=== PATIENT | female | born 1985 | race Caucasian/White ===

== ENCOUNTER 2016-05-22 01:31 | Emergency (ER) | payer BC, OTHER ==
[~2016-05-22] VITALS: Ht 157.5 cm; Wt 76.5 kg
[~2016-05-22 01:31] MED LIST: IBUP-1277 PO; LEVOIUD
[2016-05-22 01:36] VITALS: TEMP 37.5; Ht 157.5 cm; Wt 76.5 kg
[2016-05-22] MEDS ORDERED: ONDANSETRON INJ 2 MG/ML 2 ML VIAL IV STA (02:07)
[2016-05-22] MEDS ORDERED: MoRPHine SULFATE 4 MG/ML 1 ML CARP\\VIAL IV STA (02:07)
[2016-05-22] MEDS ORDERED: SODIUM CHLORIDE 0.9% 1000ML 2,000 ML IV STA (02:07)
--- NOTE | 2016-05-22 02:11 | EMERGENCY ROOM VISIT NOTE ---
History Report prepared by Satnam: Liz Bui Under the Supervision of: Dr. Gil Bhardwaj M.D. First contact with patient: 01:51 Chief Complaint: NAUSEA Stated Complaint: NAUSEA,DIZZY Nursing Triage Summary: pt c/o nausea, vomiting and diarrhea since 2099. pt states she has not been able to keep anything down and feels lightheaded History of Present Illness The patient is a 31 year old female who presents to the Emergency Room with complaints of persistent nausea, vomiting, and diarrhea starting about 4 hours ago. The patient had some trouble breathing with vomiting. She also complains of dizziness, abdominal pain, and back pain. She took Ondansetron with some relief. The patient denies any fevers, headache, neck pain/stiffness, chest pain , urinary symptoms, or any other complaints. She denies any chance of . Her children had similar symptoms a few days ago. Source of History: patient Onset: about 4 hours ago Position: other (global) Quality: other (nausea, vomiting, and diarrhea) Timing: other (persistent) Modifying Factors (Relieving): other (Ondansetron with some relief) Associated Symptoms: + abdominal pain, + back pain, No chest pain, No fevers , No headache, No neck pain, No urinary symptoms Review of Systems See HPI for pertinent positives & negatives. A total of 10 systems reviewed and were otherwise negative. Past Medical & Surgical Medical Problems: (1) Abdominal Pain, Epigastric (2) Abdominal Pain, Unspecified Site (3) Disorder Of Thyroid Nos (4) Infectious Mononucleosis (5) Ovarian Cyst Nec/Nos (6) Salmonella Enteritis Family History Diabetes mellitus FH: gallbladder disease FH: heart disease Kidney disease Kidney stones Social History Smoking Status: Never Smoker Alcohol Use: none Housing Status: lives alone Occupation Status: employed Current/Historical Medications Scheduled Levothyroxine Sodium (Synthroid), 100 MCG PO DAILY Sertraline Hcl (Zoloft), 100 MG PO DAILY Allergies Coded Allergies: No Known Allergies (Verified , 05/22/16) Physical Exam Vital Signs Date Time Temp Pulse Resp B/P Pulse Ox O2 Delivery O2 Flow Rate FiO2 05/22/16 03:28 92 20 108/66 97 05/22/16 01:36 37.5 115 18 94/73 100 Room Air Physical Exam GENERAL: Patient is in mild distress, dehydrated appearing and in no acute distress. HEENT: No acute trauma, normocephalic atraumatic, mucous membranes dry, no nasal congestion, no scleral icterus. NECK: No stridor, no adenopathy, no meningismus, trachea is midline. LUNGS: No dyspnea. Clear to auscultation and equal bilaterally. No wheeze, no rhonchi. HEART: Tachycardic rate and regular rhythm. No murmurs, rubs, gallops appreciated. ABDOMEN: Soft, nontender, bowel sounds positive, no masses appreciated, no peritonitis. BACK: No midline tenderness, no CVA tenderness EXTREMITIES: Normal motion all extremities, no cyanosis, no edema. NEUROLOGIC: Alert and oriented, no acute motor or sensory deficits, no focal weakness, cranial nerves grossly intact. SKIN: No rash, no jaundice, no diaphoresis. Medical Decision & Procedures Laboratory Results 05/22/16 01:48 Red Blood Count 4.12, Mean Corpuscular Volume 95.9, Mean Corpuscular Hemoglobin 32.8, Mean Corpuscular Hemoglobin Concent 34.2, Mean Platelet Volume 10.3, Neutrophils (%) (Auto) 88.1, Lymphocytes (%) (Auto) 5.1, Monocytes (%) (Auto) 5.5, Eosinophils (%) (Auto) 1.0, Basophils (%) (Auto) 0.1, Neutrophils # (Auto) 11.55, Lymphocytes # (Auto) 0.67, Monocytes # (Auto) 0.72, Eosinophils # (Auto) 0.13, Basophils # (Auto) 0.01 05/22/16 01:48 Test 05/22/16 01:48 05/22/16 02:20 White Blood Count 13.11 K/uL (4.8-10.8) Red Blood Count 4.12 M/uL (4.2-5.4) Hemoglobin 13.5 g/dL (12.0-16.0) Hematocrit 39.5 % (37-47) Mean Corpuscular Volume 95.9 fL (80-100) Mean Corpuscular Hemoglobin 32.8 pg (25-34) Mean Corpuscular Hemoglobin Concent 34.2 g/dl (32-36) Platelet Count 222 K/uL (130-400) Mean Platelet Volume 10.3 fL (7.4-10.4) Neutrophils (%) (Auto) 88.1 % Lymphocytes (%) (Auto) 5.1 % Monocytes (%) (Auto) 5.5 % Eosinophils (%) (Auto) 1.0 % Basophils (%) (Auto) 0.1 % Neutrophils # (Auto) 11.55 K/uL (1.4-6.5) Lymphocytes # (Auto) 0.67 K/uL (1.2-3.4) Monocytes # (Auto) 0.72 K/uL (0.11-0.59) Eosinophils # (Auto) 0.13 K/uL (0-0.5) Basophils # (Auto) 0.01 K/uL (0-0.2) RDW Standard Deviation 44.1 fL (36.4-46.3) RDW Coefficient of Variation 12.7 % (11.5-14.5) Immature Granulocyte % (Auto) 0.2 % Immature Granulocyte # (Auto) 0.03 K/uL (0.00-0.02) Red Blood Cell Morphology Unremarkable Anion Gap 14.0 mmol/L (3-11) Est Creatinine Clear Calc Drug Dose 88.5 ml/min Estimated GFR () 100.8 Estimated GFR (Non- 87.0 BUN/Creatinine Ratio 20.7 (10-20) Calcium Level 8.7 mg/dl (8.5-10.1) Urine Color YELLOW Urine Appearance CLEAR (CLEAR) Urine pH 8.5 (4.5-7.5) Urine Specific [place] 1.030 (1.000-1.030) Urine Protein NEG (NEG) Urine Glucose (UA) NEG (NEG) Urine Ketones TRACE (NEG) Urine Occult Blood TRACE (NEG) Urine Nitrite NEG (NEG) Urine Bilirubin NEG (NEG) Urine Urobilinogen NEG (NEG) Urine Leukocyte Esterase SMALL (NEG) Urine WBC (Auto) 10-30 /hpf (0-5) Urine RBC (Auto) 5-10 /hpf (0-4) Urine Hyaline Casts (Auto) 10-30 /lpf (0-5) Urine Epithelial Cells (Auto) 20-30 /lpf (0-5) Urine Bacteria (Auto) NEG (NEG) Laboratory results as reviewed by me. Medications Administered Medications (Trade) Dose Ordered Sig/Giacomo Route Start Time Stop Time Status Last Admin Dose Admin Sodium Chloride (Nss 1000ml) 2,000 ml @ 999 mls/hr Q2H1M STAT IV 05/22/16 02:07 05/22/16 04:07 DC 05/22/16 02:17 999 MLS/HR Ondansetron HCl (Zofran Inj) 4 mg NOW STAT IV 05/22/16 02:07 05/22/16 02:08 DC 05/22/16 02:16 4 MG Morphine Sulfate (MoRPHine SULFATE INJ) 4 mg NOW STAT IV 05/22/16 02:07 05/22/16 02:08 DC 05/22/16 02:17 4 MG Promethazine HCl (Phenergan 25MG Home Pack) 1 homepack UD ONCE PO 05/22/16 03:30 05/22/16 03:31 DC 05/22/16 03:25 1 HOMEPACK ED Course 0151: The patient was evaluated in room B02. A complete history and physical exam was performed. 0207: Morphine Sulfate 4 mg IV, Zofran Inj 4 mg IV, Sodium Chloride 2000 ml @ 999 mls/hr IV 0319: Reevaluated the patient. Discussed results and discharge instructions: She verbalized understanding and agreement. The patient is ready for discharge. 0330: Promethazine HCl 1 homepack PO Medical Decision Differential: Gastroenteritis, Food Borne, Esophageal Perforation, , Electrolyte Abnormality, Dehydration, Intraabdominal Infection, UTI/ Pyelonephritis, Bowel Obstruction, Biliary Pathology, amongst other pathology entertained. Pleasant 31 yr old female arrives with acute nausea, vomiting, diarrhea. Multiple family member with same and known Norovirus throughout the community. Given fluids/zofran for dehydration nausea with much improvement. Small morphine for abdominal cramping and back spasms. Abdomen exam however is quite benign. Just mild WBC elevation consistent with dehydration. No urinary symptoms and thus I feel UA is contaminant. Discussed RTED if worsening or other concerns. Stable and feeling quite well at discharge. Impression Primary Impression: Dehydration Additional Impression: Vomiting and diarrhea Scribe Attestation The scribe's documentation has been prepared under my direction and personally reviewed by me in its entirety. I confirm that the note above accurately reflects all work, treatment, procedures, and medical decision making performed by me. Departure Information Dispostion Home / Self-Care Referrals No Doctor, Assigned (PCP) Forms HOME CARE DOCUMENTATION FORM, IMPORTANT VISIT INFORMATION Patient Instructions ED Gastroenteritis Viral, My [facility] Problem Qualifiers
[2016-05-22 02:19] LABS: HEMATOCRIT 39.5 % (37-47); MEAN CELL VOLUME 95.9 fL (80-100); MEAN CORPUSCULAR HEMOGLOBIN 32.8 pg (25-34); MEAN CORPUSCULAR HGB CONC 34.2 g/dl (32-36); MEAN PLATELET VOLUME 10.3 fL (7.4-10.4); PLATELET COUNT 222 K/uL (130-400); RED BLOOD COUNT 4.12 M/uL (4.2-5.4); WHITE BLOOD COUNT 13.11 K/uL (4.8-10.8)
[2016-05-22 02:33] LABS: URINE APPEARANCE CLEAR (CLEAR); URINE BILIRUBIN NEG (NEG); URINE COLOR YELLOW; URINE EPITHELIAL CELL AUTO 20-30 /lpf (0-5); URINE NITRITE NEG (NEG); URINE PH 8.5 (4.5-7.5); UROBILINOGEN NEG (NEG); ZZUR CULT IF INDIC CLEAN CATCH YES
[2016-05-22 02:35] LABS: MANUAL MICROSCOPIC REQUIRED? NO; REVIEW REQ? NO
[2016-05-22 02:37] LABS: BASO % 0.1 %; BASO ABS # 0.01 K/uL (0-0.2); BUN/CREATININE RATIO 20.7 (10-20); CALCIUM 8.7 mg/dl (8.5-10.1); COMPLETE YES; CREATININE 0.89 mg/dl (0.60-1.20); IG% 0.2 %; LYMPH % 5.1 %; LYMPH ABS # 0.67 K/uL (1.2-3.4); MONO % 5.5 %; NEUT % 88.1 %; POTASSIUM 3.6 mmol/L (3.5-5.1)
[2016-05-22 03:28] VITALS: BP 108/66; PULSE 92; O2SAT 97
[2016-05-22] MEDS ORDERED: PHENERGAN 25MG HOMEPACK PO ONE (03:30)
[2016-08-27] MEDS ORDERED: OXYC-57 PO (09:44)
[2016-08-27] MEDS ORDERED: SERT1TAB68 PO (09:45)
[2016-08-27] MEDS ORDERED: LEVO100T PO (09:45)
== END 2016-05-22 03:28 | disposition home or self-care (01) ==
LOC: C.EDB 01:31
DX: E86.0 Dehydration (principal); R11.10 Vomiting, unspecified; R19.7 Diarrhea, unspecified; E07.9 Disorder of thyroid, unspecified; N83.209 Unspecified ovarian cyst, unspecified side; Z86.19 Personal history of other infectious and parasitic diseases; Z79.899 Other long term (current) drug therapy; Z83.3 Family history of diabetes mellitus; Z83.79 Family history of other diseases of the digestive system; Z82.49 Family history of ischemic heart disease and other diseases of the circulatory system; Z84.1 Family history of disorders of kidney and ureter

== ENCOUNTER → 2016-06-13 | Outpatient (CLI) | payer BC ==
[~2016-06-13] MED LIST changes: -IBUP-1277 PO; +LEVO100T PO; -LEVOIUD; +ONDA4TAB10 SL; +OXYC-57 PO; +SERT1TAB68 PO
[2016-06-13 14:03] LABS: THYROID STIMULATING HORMONE 0.862 uIu/ml (0.300-4.500)
== END | disposition home or self-care (01) ==
LOC: C.LABBC 12:13
PROVIDERS: ATTEND Internal Medicine Endocrinology, Diabetes & Metabolism
DX: E03.9 Hypothyroidism, unspecified (principal); E06.3 Autoimmune thyroiditis; E05.00 Thyrotoxicosis with diffuse goiter without thyrotoxic crisis or storm

== ENCOUNTER → 2016-07-23 | Outpatient (CLI) | payer BC ==
[~2016-07-23] MED LIST changes: +ZNTT/150 PO
== END | disposition home or self-care (01) ==
LOC: C.LABSPEC 10:49
PROVIDERS: ATTEND Internal Medicine
DX: N39.0 Urinary tract infection, site not specified (principal)

== ENCOUNTER 2016-08-27 18:17 | Emergency (ER) | payer BC ==
[~2016-08-27] VITALS: Ht 157.5 cm; Wt 77.5 kg
[~2016-08-27 18:17] MED LIST changes: -ATROPINE SULFATE 0.1 MG/ML 5ML SYR IV PRN; -BUPIVACAINE 0.5 % 5 MG/1 ML MPF 30ML VIAL ONE; -DEXAMETHASONE SOD INJ 4 MG/ML VIAL ONE; -FENTANYL CITRATE INJ 50 MCG/1 ML 2 ML VIAL ONE; -GLYCOPYRROLATE INJ 0.2 MG/ML VIAL ONE; -IBUPROFEN 200 MG TAB ONE; -IBUPROFEN 600 MG TAB PO PRN; -KETOROLAC TROMETHAMINE 30 MG/ML VIAL IV. PRN; -KETOROLAC TROMETHAMINE 30 MG/ML VIAL ONE; -LABETALOL HCL IV 5 MG/ML 20ML IV PRN; -LACTATED RINGER'S 1000ML 1,000 ML IV SCH; -LIDOCAINE HCL 2% 2 ML VIAL (20MG/ML) ONE; -MIDAZOLAM HCL 1 MG/ML 2ML VIAL ONE; -NEOSTIGMINE METHYLSULFATE 5 MG/5 ML SYR ONE; -ONDA4TAB10 SL; -ONDANSETRON INJ 2 MG/ML 2 ML VIAL IV PRN; -ONDANSETRON INJ 2 MG/ML 2 ML VIAL ONE; -OXYCODONE/ACETAMINOPHEN 5-325 TAB PO PRN; -PROMETHAZINE HCL INJ 12.5 MG in SODIUM CHLORIDE 0.9% 50ML 50 ML IV PRN; -PROPOFOL IV EMULSION 10 MG/ML 20 ML VIAL IV ONE; -SODIUM CHLORIDE 0.9% 1000ML 1,000 ML IV SCH; -ZNTT/150 PO
[2016-08-27 18:20] VITALS: TEMP 36.5; Ht 157.5 cm; Wt 77.5 kg
[2016-08-27] MEDS ORDERED: KETOROLAC TROMETHAMINE 30 MG/ML VIAL IV STA (18:34)
[2016-08-27] MEDS ORDERED: SODIUM CHLORIDE 0.9% 1000ML 2,000 ML IV STA (18:34)
[2016-08-27] MEDS ORDERED: MoRPHine SULFATE 10 MG/ML CARP/VIAL IV STA (18:34)
[2016-08-27] MEDS ORDERED: ONDANSETRON 8 MG/54 ML D5W IV STA (18:34)
[2016-08-27 19:20] LABS: COMPLETE YES; HEMATOCRIT 37.8 % (37-47); IG% 0.3 %; LYMPH ABS # 0.76 K/uL (1.2-3.4); MEAN CELL VOLUME 95.2 fL (80-100); MEAN CORPUSCULAR HEMOGLOBIN 32.5 pg (25-34); MEAN CORPUSCULAR HGB CONC 34.1 g/dl (32-36); MEAN PLATELET VOLUME 9.8 fL (7.4-10.4); MONO % 1.7 %; PLATELET COUNT 243 K/uL (130-400); RED BLOOD COUNT 3.97 M/uL (4.2-5.4); WHITE BLOOD COUNT 10.87 K/uL (4.8-10.8)
[2016-08-27 19:24] LABS: MANUAL MICROSCOPIC REQUIRED? NO; REVIEW REQ? NO; URINE APPEARANCE CLEAR (CLEAR); URINE BILIRUBIN NEG (NEG); URINE COLOR YELLOW; URINE EPITHELIAL CELL AUTO >30 /lpf (0-5); URINE NITRITE NEG (NEG); URINE PH >= 9.0 (4.5-7.5); URINE SPECIFIC GRAVITY 1.026 (1.000-1.030); UROBILINOGEN NEG (NEG)
[2016-08-27 19:26] LABS: SULFASALICYLIC ACID NEG (NEG)
[2016-08-27 19:37] LABS: BUN/CREATININE RATIO 9.7 (10-20); CALCIUM 9.1 mg/dl (8.5-10.1); CREATININE 0.81 mg/dl (0.60-1.20); POTASSIUM 3.4 mmol/L (3.5-5.1)
[2016-08-27] MEDS ORDERED: MoRPHine SULFATE 4 MG/ML 1 ML CARP\\VIAL IV STA (20:04)
[2016-08-27] MEDS ORDERED: ONDA4TAB10 SL (20:43)
--- NOTE | 2016-08-27 20:43 | EMERGENCY ROOM VISIT NOTE ---
History First contact with patient: 18:25 Chief Complaint: VOMITING Stated Complaint: TUBAL LIGATION TODAY,THROWING UP,PAIN Nursing Triage Summary: Pt states tubal ligation today by Dr. Senior. N/V since 1300. Pt states taking Percocet, not given anything for zofran. States pain is getting worse. History of Present Illness Patient is a 31-year-old white female with past medical history significant for hypothyroidism who presents to the emergency department accompanied by her sister for evaluation of pelvic pain, nausea and vomiting after having a laparoscopic tubal ligation performed today. Patient had surgery earlier today. She reports that she was discharged from the surgery center around 11: 30. Her pain was controlled at that time. She states she went home and slept for a few hours, then began to notice some increased pain so she took it one Percocet tablet on an empty stomach around 1330. She states she vomited roughly 10 minutes after taking the Percocet. Throughout the afternoon, she tried sipping on spray, Gatorade, eating crackers and broth, but had continued vomiting, she reports a total of 5 or 6 episodes. Her last episode of vomiting was in the waiting room. She did try taking a another Percocet tablet about one hour prior to coming to the emergency department, and again vomited roughly 10 minutes after ingesting the tablet. She used a heating pad on her abdomen, but did not take any additional medications for discomfort which she presently rates a 10/10. She did not attempt to call her surgeon. She has never had general anesthesia before, and does not believe that she has ever taken Percocet. She notes lower pelvic/suprapubic pain that does not radiate. She has been able to urinate and notes some urinary burning the last couple of times that she voided. She has not had a bowel movement in a couple of days. She has slight vaginal spotting. Review of Systems Review of systems as per HPI. All other systems reviewed were negative. 10 systems reviewed. Past Medical/Surgical History Medical Problems: (1) Abdominal Pain, Epigastric (2) Abdominal Pain, Unspecified Site (3) Dehydration (4) Diabetes mellitus, new onset (5) Disorder Of Thyroid Nos (6) Hypothyroidism Nos (7) Infectious Mononucleosis (8) Intrauterine (9) Ovarian Cyst Nec/Nos (10) Salmonella Enteritis (11) Sinusitis (12) Syncope, vasovagal (13) Urinary tract infection (14) Vomiting and diarrhea Surgical Problems: (1) H/O wisdom tooth extraction (2) History of tubal ligation Electronic medical records are reviewed and summarized as above/below. See Problem List. Family History Diabetes mellitus FH: gallbladder disease FH: heart disease Kidney disease Kidney stones Social History Smoking Status: Never Smoker Alcohol Use: none Housing Status: lives with family Occupation Status: employed Current/Historical Medications Scheduled Levothyroxine Sodium (Synthroid), 100 MCG PO QAM Sertraline Hcl (Zoloft), 100 MG PO HS Scheduled PRN Ondasetron Odt (Zofran Odt), 4 MG SL Q4 PRN for Nausea or Vomiting Oxycodone/Acetaminophen 5MG/325MG (Percocet 5MG/325MG), 1 TABLET PO Q4H PRN for Pain Allergies Coded Allergies: No Known Allergies (Verified , 08/27/16) Physical Exam Vital Signs Date Time Temp Pulse Resp B/P Pulse Ox O2 Delivery O2 Flow Rate FiO2 08/27/16 20:55 84 18 107/60 94 08/27/16 20:03 84 18 100/55 94 Room Air 08/27/16 18:20 36.5 76 20 114/72 97 Room Air Physical Exam CONSTITUTIONAL: Patient is an uncomfortable appearing 31-year-old white female who is awake and alert and in mild distress due to her stated complaint. EYES: Pupils equal, round, reactive to light and accommodation. EOMs intact without nystagmus. Sclera are anicteric. ENT: Tympanic membranes intact, with normal landmarks. External canals are clear. Oral and nasopharynx are clear. Mucous membranes are moist, no lesions , tongue and gums appear normal. NECK: No bruits auscultated. Supple without lymphadenopathy. No thyromegaly. No meningeal signs. Full active range of motion without discomfort. CARDIOVASCULAR: Regular rate and rhythm, with normal S1 and S2, no murmur or gallop or rub is heard. No carotid bruits auscultated. No JVD. Peripheral pulses easily palpable. RESPIRATORY: Breath sounds equal and clear to auscultation without wheezes, rales, or rhonchi heard. Full and equal chest expansion without accessory muscle use or retractions. ABDOMEN: Bowel sounds are present. 2 surgical incisions are noted intact with Steri-Strips and band aids. Surgical prep still stains the abdomen. Bowel sounds are hypoactive, the abdomen is soft, slightly distended and tender to percussion and light palpation only in the suprapubic region without guarding or rebound. INTEGUMENTARY: No lesions or rash, normal skin turgor. LYMPH: No lymphadenopathy. Medical Decision & Procedures Laboratory Results 08/27/16 19:03 Red Blood Count 3.97, Mean Corpuscular Volume 95.2, Mean Corpuscular Hemoglobin 32.5, Mean Corpuscular Hemoglobin Concent 34.1, Mean Platelet Volume 9.8, Neutrophils (%) (Auto) 91.0, Lymphocytes (%) (Auto) 7.0, Monocytes (%) (Auto) 1.7, Eosinophils (%) (Auto) 0.0, Basophils (%) (Auto) 0.0, Neutrophils # (Auto) 9.90, Lymphocytes # (Auto) 0.76, Monocytes # (Auto) 0.18, Eosinophils # (Auto) 0.00, Basophils # (Auto) 0.00 08/27/16 19:03 Test 08/27/16 19:03 08/27/16 19:07 White Blood Count 10.87 K/uL (4.8-10.8) Red Blood Count 3.97 M/uL (4.2-5.4) Hemoglobin 12.9 g/dL (12.0-16.0) Hematocrit 37.8 % (37-47) Mean Corpuscular Volume 95.2 fL (80-100) Mean Corpuscular Hemoglobin 32.5 pg (25-34) Mean Corpuscular Hemoglobin Concent 34.1 g/dl (32-36) Platelet Count 243 K/uL (130-400) Mean Platelet Volume 9.8 fL (7.4-10.4) Neutrophils (%) (Auto) 91.0 % Lymphocytes (%) (Auto) 7.0 % Monocytes (%) (Auto) 1.7 % Eosinophils (%) (Auto) 0.0 % Basophils (%) (Auto) 0.0 % Neutrophils # (Auto) 9.90 K/uL (1.4-6.5) Lymphocytes # (Auto) 0.76 K/uL (1.2-3.4) Monocytes # (Auto) 0.18 K/uL (0.11-0.59) Eosinophils # (Auto) 0.00 K/uL (0-0.5) Basophils # (Auto) 0.00 K/uL (0-0.2) RDW Standard Deviation 44.2 fL (36.4-46.3) RDW Coefficient of Variation 12.8 % (11.5-14.5) Immature Granulocyte % (Auto) 0.3 % Immature Granulocyte # (Auto) 0.03 K/uL (0.00-0.02) Anion Gap 7.0 mmol/L (3-11) Est Creatinine Clear Calc Drug Dose 97.9 ml/min Estimated GFR () 113.0 Estimated GFR (Non- 97.5 BUN/Creatinine Ratio 9.7 (10-20) Calcium Level 9.1 mg/dl (8.5-10.1) Total Bilirubin 0.8 mg/dl (0.2-1) Aspartate Amino Transf (AST/SGOT) 10 U/L (15-37) Alanine Aminotransferase (ALT/SGPT) 20 U/L (12-78) Alkaline Phosphatase 69 U/L (45-117) Total Protein 7.9 gm/dl (6.4-8.2) Albumin 4.0 gm/dl (3.4-5.0) Globulin 3.9 gm/dl (2.5-4.0) Albumin/Globulin Ratio 1.0 (0.9-2) Lipase 72 U/L (73-393) Urine Color YELLOW Urine Appearance CLEAR (CLEAR) Urine pH >= 9.0 (4.5-7.5) Urine Specific [place] 1.026 (1.000-1.030) Urine Protein NEG (NEG) Urine Glucose (UA) NEG (NEG) Urine Ketones 2+ (NEG) Urine Occult Blood 1+ (NEG) Urine Nitrite NEG (NEG) Urine Bilirubin NEG (NEG) Urine Urobilinogen NEG (NEG) Urine Leukocyte Esterase TRACE (NEG) Urine WBC (Auto) 1-5 /hpf (0-5) Urine RBC (Auto) >30 /hpf (0-4) Urine Hyaline Casts (Auto) 5-10 /lpf (0-5) Urine Epithelial Cells (Auto) >30 /lpf (0-5) Urine Bacteria (Auto) NEG (NEG) Medications Administered Medications (Trade) Dose Ordered Sig/Giacomo Route Start Time Stop Time Status Last Admin Dose Admin Sodium Chloride (Nss 1000ml) 2,000 ml @ 999 mls/hr Q2H1M STAT IV 08/27/16 18:34 08/27/16 20:34 DC 08/27/16 19:10 999 MLS/HR Ketorolac Tromethamine (Toradol Inj) 30 mg NOW STAT IV 08/27/16 18:34 08/27/16 18:36 DC 08/27/16 19:23 30 MG Ondansetron HCl (Zofran 8mg Iv) 8 mg NOW STAT IV 08/27/16 18:34 08/27/16 18:37 DC 08/27/16 19:10 8 MG Morphine Sulfate (MoRPHine SULFATE INJ) 6 mg NOW STAT IV 08/27/16 18:34 08/27/16 18:37 DC 08/27/16 19:25 6 MG Morphine Sulfate (MoRPHine SULFATE INJ) 4 mg NOW STAT IV 08/27/16 20:04 08/27/16 20:05 DC 08/27/16 20:10 4 MG Ondansetron HCl (ZOFRAN ODT 4MG Home Pack) 1 homepack UD ONCE PO 08/27/16 20:45 08/27/16 20:46 DC 08/27/16 20:49 1 HOMEPACK Acetaminophen/ Hydrocodone Bitart ([place] 5/325mg Home Pack) 1 homepack UD ONCE PO 08/27/16 20:45 08/27/16 20:46 DC 08/27/16 20:48 1 HOMEPACK ED Course The patient was seen and assessed as above. Her old records were reviewed, specifically her operative record from earlier today. IV access was obtained and patient was hydrated with 2 L of normal saline solution. She is medicated with Toradol 30 mg, morphine 6 mg and Zofran 4 mg IV. CBC with differential, CMP, lipase and urinalysis were performed. Laboratory studies revealed a white count of 10,800, H&H 12.9 and 37.8. Electrolytes, liver functions and renal functions are within normal limits. Lipase is not elevated. Urinalysis is indicative of contamination with blood, leuk esterase and greater than 30 RBCs and epithelial cells. No bacteria is noted. The patient was reassessed and reported improvement, but persistent pain. She was given additional morphine 4 mg IV with good relief of her discomfort. She was given oral fluids in the emergency department which she tolerated, and reported feeling much improved. Patient's symptoms could be related to the general anesthesia, could also be related to the Percocet use, possibly a combination of both. The patient's exam has expected tenderness, but no guarding or rigidity and it was not felt that any imaging was indicated at this time. Conservative care measures were discussed. Patient was provided a prescription for Zofran. She can try this with the Percocet, but if this continues to make her nauseous, she was given a [place] home pack which she can try instead of the Percocet. She was encouraged to use ibuprofen as well and to follow all of her other postoperative instructions according to her surgeon. I do not suspect postoperative hemorrhage, bowel perforation or obstruction or infectious process. The patient was educated on the worrisome signs or symptoms for which she should return to the emergency department, and was advised to recheck to her surgeon by phone tomorrow to notify them of her ED visit. Patent expressed understanding of this and was agreeable. She was discharged home in good condition in the care of a friend. She rated her discomfort a 4/10 at discharge. Vital signs were stable. Medical Decision See ED course Impression Primary Impression: Nausea and vomiting Additional Impression: Postoperative pain Departure Information Prescriptions Ondasetron Odt (ZOFRAN ODT) 4 Mg Tab 4 MG SL Q4 Y for Nausea or Vomiting, #20 TAB Prov: Kandi Jewell PA 08/27/16 Referrals RV. Felix MD (PCP) Patient Instructions My [facility] Additional Instructions DO NOT drive, drink alcohol, operate machinery, or perform dangerous activities today. You were given medications in the ER that can affect your ability to safely function or operate a vehicle. Hydrocodone/Acetaminophen ([place]) 5/325 mg: Take 1-2 pills every four hours for breakthrough pain. Avoid alcohol, operating machinery or dangerous equipment, working on ladders or roofs, DRIVING, or situations where being under the influence may be dangerous. It is recommended to use an [id number] stool softener such as Colace, 100mg twice daily while taking this medication to avoid constipation. Zofran(odansetron) tablets 4mg: Take one and allow it to dissolve in your mouth every four to six hours as needed for nausea or vomiting. Ibuprofen(Motrin, Advil) may be used for fever or pain. Use 600mg every six hours as needed. Take with food. Avoid using more than 2400mg in a 24 hour period. Do not use 2400mg per day for more than three consecutive days without physician direction. Prolonged inappropriate use can lead to stomach upset or ulcers. (AND/OR) Acetaminophen(Tylenol) may be used for fever or pain. Use 1000mg every six hours as needed. Avoid using more than 4000mg in a 24 hour period. Rest and drink plenty of fluids as tolerated. Slow sips of water or sports drinks are recommended instead of large amounts all at once. Continue current medications. Once your stomach is settled start with a clear liquid diet (jello, soup broth, etc.) and then advance as tolerated. You should avoid full, heavy meals for about 24 hrs from the time your symptoms resolved. Follow all other postoperative instructions according to Dr. Senior. Return to the ER for persistent vomiting, fevers, abdominal pain, chest pains, difficulty breathing, black or bloody stools, worsening of your condition, or as needed. Follow up with gynecology as scheduled. Problem Qualifiers
[2016-08-27] MEDS ORDERED: ONDANSETRON HOME PACK 4MG OD TAB PO ONE (20:45)
[2016-08-27] MEDS ORDERED: NORCO 5/325MG HOME PACK PO ONE (20:45)
[2016-08-27 20:55] VITALS: BP 107/60; PULSE 84; O2SAT 94
== END 2016-08-27 20:55 | disposition home or self-care (01) ==
LOC: C.EDB 18:18 → C.EDC 20:55
DX: R11.2 Nausea with vomiting, unspecified (principal); G89.18 Other acute postprocedural pain; E03.9 Hypothyroidism, unspecified; E11.9 Type 2 diabetes mellitus without complications; Z98.890 Other specified postprocedural states; Z79.899 Other long term (current) drug therapy; Z86.19 Personal history of other infectious and parasitic diseases; Z87.42 Personal history of other diseases of the female genital tract; Z82.49 Family history of ischemic heart disease and other diseases of the circulatory system; Z83.3 Family history of diabetes mellitus; Z83.79 Family history of other diseases of the digestive system; Z84.1 Family history of disorders of kidney and ureter

== ENCOUNTER → 2016-08-27 | Day surgery (SDC) | payer BC ==
[2016-08-01 12:04] VITALS: Ht 157.5 cm; Wt 77.3 kg
--- NOTE | 2016-08-24 07:46 | HISTORY & PHYSICAL EXAMINATION ---
DATE OF ADMISSION: 08/27/2016 The patient is for surgery on 08/27/2016. CHIEF COMPLAINT: Desires sterilization. HISTORY OF PRESENT ILLNESS: The patient is a 31-year-old white female, 2, para 2, who desires permanent sterilization. The patient recently had a Mirena IUD removed as it had . She has been using condoms for contraception since then. The IUD was removed on 07/30/2016. The patient's last Pap smear was 01/13/2016 and this was negative. PAST MEDICAL HISTORY: ALLERGIES: No known drug allergies. MEDICATIONS: The patient takes levothyroxine 100 mcg daily. She also takes sertraline 50 mg 1 and 1/2 tablets daily. ILLNESSES: The patient does suffer with the seasonal allergies. She has also been diagnosed with Graves' disease in the past and is now hypothyroid. She also reports depression. SURGERIES: The patient has had a tooth extraction in the past. Otherwise, no surgeries. FAMILY HISTORY: Her paternal grandmother had elevated cholesterol, hypertension and thyroid disorder. Her paternal grandfather had diabetes and cardiovascular disorder. SOCIAL HISTORY: The patient is . She denies smoking cigarettes. She does drink alcohol socially. PHYSICAL EXAMINATION: VITAL SIGNS: Height 5 feet 2-1/2 inches, weight 171 pounds, blood pressure 124/66. HEENT: Grossly within normal limits. NECK: Supple without masses. CHEST: Her lungs are clear without wheezing. HEART: Regular rate and rhythm. No murmurs, gallops or rubs. ABDOMEN: Soft and nontender. There are no masses and no hepatosplenomegaly. PELVIC: External genitalia normal. Vagina pink and stimulated. Cervix pink and closed with no lesions visible. Uterus within normal limit size, nontender. Adnexa nontender with no masses palpable. EXTREMITIES: No cyanosis, clubbing or edema. IMPRESSION: A 31-year-old 2, para 2, who desires permanent sterilization. PLAN: The patient is for laparoscopic bilateral tubal sterilization by bipolar cauterization, ring placement or excision. The patient is aware of the risks of bleeding, infection, injury to internal organs which could require additional surgery or treatment, risk of regret, ectopic , failure and rehospitalization. The patient is aware of other methods of contraception, but she desires permanent sterilization. [facility]
[~2016-08-27] VITALS: Ht 157.5 cm; Wt 77.3 kg
[~2016-08-27] MED LIST changes: +ATROPINE SULFATE 0.1 MG/ML 5ML SYR IV PRN; +BUPIVACAINE 0.5 % 5 MG/1 ML MPF 30ML VIAL ONE; +DEXAMETHASONE SOD INJ 4 MG/ML VIAL ONE; +FENTANYL CITRATE INJ 50 MCG/1 ML 2 ML VIAL ONE; +GLYCOPYRROLATE INJ 0.2 MG/ML VIAL ONE; +IBUPROFEN 200 MG TAB ONE; +IBUPROFEN 600 MG TAB PO PRN; +KETOROLAC TROMETHAMINE 30 MG/ML VIAL IV. PRN; +KETOROLAC TROMETHAMINE 30 MG/ML VIAL ONE; +LABETALOL HCL IV 5 MG/ML 20ML IV PRN; +LACTATED RINGER'S 1000ML 1,000 ML IV SCH; +LIDOCAINE HCL 2% 2 ML VIAL (20MG/ML) ONE; +MIDAZOLAM HCL 1 MG/ML 2ML VIAL ONE; +NEOSTIGMINE METHYLSULFATE 5 MG/5 ML SYR ONE; +ONDANSETRON INJ 2 MG/ML 2 ML VIAL IV PRN; +ONDANSETRON INJ 2 MG/ML 2 ML VIAL ONE; +OXYCODONE/ACETAMINOPHEN 5-325 TAB PO PRN; +PROMETHAZINE HCL INJ 12.5 MG in SODIUM CHLORIDE 0.9% 50ML 50 ML IV PRN; +PROPOFOL IV EMULSION 10 MG/ML 20 ML VIAL IV ONE; +SODIUM CHLORIDE 0.9% 1000ML 1,000 ML IV SCH
--- NOTE | 2016-08-27 08:41 | History & Physical Bridge - SC ---
H&P Re-Evaluation Bridge Note: I have examined the patient, reviewed the History & Physical and in the interval since the performance of the History & Physical I have noted the following changes of clinical significance: No changes noted
--- NOTE | 2016-08-27 09:28 | [facility] Post Operative Brief Note ---
Immediate Operative Summary Operative Date August 27, 2016. Pre-Operative Diagnosis Desires permanent sterilization Post-Operative Diagnosis Same Procedure(s) Performed Laparoscopic Tubal Sterilization With Fallope Rings Surgeon Dr. Senior Tailer Off Surgeon(s) None Estimated Blood Loss 20 cc Findings See dictated note. Specimens None Complication(s) None Disposition Recovery Room / PACU
--- NOTE | 2016-08-27 09:40 | Discharge Instructions-SurgCtr ---
Discharge Instructions Date of Service August 27, 2016. Visit Reason for Visit: Desires permanent sterilization Discharge Discharge Diagnosis / Problem: S/P laparoscopic tubal banding Discharge Goals Goal(s): Therapeutic intervention Activity Recommendations Activity Limitations: per Instructions/Follow-up section Anesthesia . Post Anesthesia Instructions: If you have had General Anesthesia or IV Sedation: * Do not drive today. * Resume driving when surgeon permits. * Do not make important decisions or sign legal documents today. * Call surgeon for: 1. Temperature elevations greater than 101 degrees F. 2. Uncontrollable pain. 3. Excessive bleeding. 4. Persistent nausea and vomiting. 5. Medication intolerance (nausea, vomiting or rash). * For nausea and vomiting use only clear liquids such as: tea, soda, bouillon until nausea subsides, then gradually increase diet as tolerated. * If you have any concerns or questions, call your surgeon's office. If physician is unavailable and it is an emergency, call 911 or go to the nearest emergency room. . Instructions / Follow-Up Instructions / Follow-Up ACTIVITY RECOMMENDATIONS: * Rest the first 2-3 days. You should be back to your normal activity levels by day 3. * No heavy lifting for 2 weeks. * No intercourse, tampons or douching for 2 weeks. * You may shower the next day. * Do not drive anytime that you are taking narcotic pain medicines. RETURN TO SCHOOL/WORK: * May return to school or work after 3-5 days. DIET: Nausea may occur in the immediate post-operative period. If so, take clear liquids such as tea, bouillon, apple juice until all nausea has subsided, then resume usual diet. MEDICATIONS: Resume previous medications unless instructed otherwise by your surgeon. Take percocet one tablet every 3-4 hours as needed for severe pain. Ibuprofen 200mg 2-3 tablets every 4-6 hours as needed -- OR -- Aleve 2 tablets every 8-12 hours as needed for post-operative discomfort Medications are over the counter. Tylenol may be used if above medications are contraindicated or not preferred. Medication should be taken with food or milk. Do not take on an empty stomach. SPECIAL CARE INSTRUCTIONS: * Check temperature twice daily for one week. report any elevation over 101 degrees. * You may experience some vagina spotting and/or bleeding. This is normal for 1 -2 weeks and should not be heavier than a normal period. If it is unusual in amount, call your physician. * Post-operative discomfort may consist of a sore throat, a "bloated" feeling and pain in the shoulders. these are normal symptoms, which usually only last for 2-3 days. * Remove band-aids tomorrow and shower. Leave steristrips in place. There is no need to replace band-aids unless there is drainage or discomfort. FOLLOW UP VISIT: Call your doctor's office for a post-operative 2-4 week visit if not already scheduled. [phone] Diet Recommendations Home Diet: resume previous diet Procedures Procedures Performed: Laparoscopic Tubal Sterilization With Fallope Rings Pending Studies Studies pending at discharge: no Medical Emergencies . Who to Call and When: Medical Emergencies: If at any time you feel your situation is an emergency, please call 911 immediately. . Non-Emergent Contact Non-Emergency issues call your: Field Staff Manager Call Non-Emergent contact if: temperature is above 100.5, your pain is not controlled, wound has increased drainage, wound has increased redness, wound has increased pain . . "Provider Documentation" section prepared by Mony Senior. . [place] Drug Monitoring Program Search Results: patient reviewed within database, no issues identified
[2016-08-27] MEDS: FENTANYL CITRATE INJ 50 MCG/1 ML 2 ML VIAL IV PRN ×3 (09:55→10:15)
--- NOTE | 2016-08-27 10:37 | OPERATIVE REPORT ---
DATE OF OPERATION: 08/27/2016 PREOPERATIVE DIAGNOSIS: Desires permanent sterilization. POSTOPERATIVE DIAGNOSIS: Same. PROCEDURE: Laparoscopic tubal sterilization with Falope rings. SURGEON: Dr. Mony Senior. ANESTHESIA: General. NEURORADIOLOGIST: Dr. Bland. DESCRIPTION OF PROCEDURE: The patient was taken to the operating room where general anesthesia was administered. After an adequate level was obtained, she was placed in dorsal lithotomy position. Abdomen, vulva, vagina, and cervix were prepped with Betadine solution. The patient was draped. Hulka clamp was inserted into the uterus. Red rubber catheter was inserted into the bladder and the bladder drained. The catheter was left in place during the course of the procedure. I changed gloves. An incision was then made at the lower edge of the umbilicus using the scalpel. Veress needle was inserted successfully on the first attempt. The abdomen was insufflated with 2-3 liters of carbon dioxide. Veress needle was removed and laparoscopic trocar and sheath inserted. Trocar was removed and laparoscope inserted. A second incision was made suprapubically with a scalpel. The trocar and sheath for the banding instrument were inserted under direct visualization. Trocar was removed and banding instrument inserted. The pelvic organs were visualized. The uterus appeared normal as did the fallopian tubes and ovaries. Photos were taken. There was no evidence of adhesions. Appendix was visualized and appeared normal. The liver edge also appeared normal. The right fallopian tube was identified by its fimbriated end. A section in the mid portion of the tube was then banded with a Falope ring. The banded portion blanched immediately. This procedure was repeated on the left fallopian tube after it was identified by its fimbriated end. There was some serosanguineous fluid in the cul-de-sac. Marcaine 0.25% was then dripped on to each banded portion of tube. 10 mL on each tube. At this point, the procedure was ended. Gas was allowed to escape from the abdomen and the laparoscopic instruments were removed. The skin was closed at the umbilical incision with 2 interrupted sutures of 3-0 Vicryl. One suture was used to close the skin at the suprapubic incision. The patient tolerated the procedure well. Hulka clamp was removed from the uterus and red rubber catheter from the bladder. The patient was taken to the recovery room in good condition. I attest to the content of the Intraoperative Record and any orders documented therein. Any exceptions are noted below. MTDD
--- NOTE | 2016-08-27 11:00 | Anesthesia Progress Nt - [facility] ---
Anesthesia Post Op Note Date & Time August 27, 2016 at 11:00 Vital Signs Pain Intensity: 3 Vital Signs Past 12 Hours Date Time Temp Pulse Resp B/P Pulse Ox O2 Delivery O2 Flow Rate FiO2 08/27/16 10:47 37.4 80 14 115/70 97 Room Air 08/27/16 10:22 70 11 08/27/16 10:22 72 11 95 08/27/16 10:20 134/67 08/27/16 10:19 36.8 08/27/16 10:17 65 12 08/27/16 10:17 67 12 98 08/27/16 10:15 121/81 08/27/16 10:12 68 26 08/27/16 10:12 69 26 97 08/27/16 10:10 126/77 08/27/16 10:07 66 12 99 08/27/16 10:07 65 12 08/27/16 10:05 126/92 08/27/16 10:02 69 13 08/27/16 10:02 71 13 98 08/27/16 10:01 130/86 08/27/16 09:57 68 16 08/27/16 09:57 70 16 93 08/27/16 09:56 118/91 08/27/16 09:52 67 15 08/27/16 09:52 65 15 96 08/27/16 09:51 129/97 08/27/16 09:47 71 18 08/27/16 09:47 71 18 100 08/27/16 09:45 128/86 08/27/16 09:42 72 20 100 08/27/16 09:42 72 20 08/27/16 09:41 127/94 08/27/16 09:37 78 13 100 08/27/16 09:37 78 13 08/27/16 09:36 142/80 08/27/16 09:33 129/95 08/27/16 09:32 92 08/27/16 09:32 92 93 08/27/16 09:31 36.6 92 16 129/95 98 Diffusion Mask 8 08/27/16 07:15 36.9 91 16 123/77 96 Room Air Notes Mental Status: alert / awake / arousable, participated in evaluation Pt Amnestic to Procedure: Yes Nausea / Vomiting: adequately controlled Pain: adequately controlled Airway Patency, RR, SpO2: stable & adequate BP & HR: stable & adequate Hydration State: stable & adequate Anesthetic Complications: no major complications apparent
[2016-08-27 11:20] VITALS: BP 112/71; PULSE 85; TEMP 37.4; O2SAT 96
== END | disposition home or self-care (01) ==
LOC: X.SURG 07:09
PROVIDERS: ATTEND Obstetrics & Gynecology
DX: Z30.2 Encounter for sterilization (principal); R11.2 Nausea with vomiting, unspecified; G89.18 Other acute postprocedural pain; E03.9 Hypothyroidism, unspecified; E11.9 Type 2 diabetes mellitus without complications; Z98.890 Other specified postprocedural states; Z79.899 Other long term (current) drug therapy; Z86.19 Personal history of other infectious and parasitic diseases; Z87.42 Personal history of other diseases of the female genital tract; Z82.49 Family history of ischemic heart disease and other diseases of the circulatory system; Z83.3 Family history of diabetes mellitus; Z83.79 Family history of other diseases of the digestive system; Z84.1 Family history of disorders of kidney and ureter

== ENCOUNTER → 2016-11-28 | Outpatient (CLI) | payer BC ==
[~2016-11-28] MED LIST changes: +ONDA4TAB10 SL
[2016-11-28 17:11] LABS: THYROID STIMULATING HORMONE 0.328 uIu/ml (0.300-4.500)
== END | disposition home or self-care (01) ==
LOC: C.LABBC 12:14
PROVIDERS: ATTEND Internal Medicine Endocrinology, Diabetes & Metabolism
DX: E03.9 Hypothyroidism, unspecified (principal); E05.00 Thyrotoxicosis with diffuse goiter without thyrotoxic crisis or storm

== ENCOUNTER → 2017-01-14 | Outpatient (CLI) | payer BC | END | disposition home or self-care (01) | LOC: C.PAPS 12:05 | PROVIDERS: ATTEND Obstetrics & Gynecology | DX: Z01.419 Encounter for gynecological examination (general) (routine) without abnormal findings (principal) ==

== ENCOUNTER → 2017-03-04 | Outpatient (CLI) | payer BC ==
[~2017-03-04] MED LIST changes: -ONDA4TAB10 SL; -OXYC-57 PO; +ZNTT/150 PO
--- NOTE | 2017-03-04 10:22 | DIAGNOSTIC IMAGING REPORT ---
ABDOMINAL ULTRASOUND, RIGHT UPPER QUADRANT HISTORY: Epigastric pain. COMPARISON: None. FINDINGS: Liver morphology is normal. No hepatic lesions are identified. There is no biliary ductal dilatation. Sludge and gallstones are noted within the gallbladder. Mild gallbladder wall thickening is noted. The wall measures 6 mm in thickness. The wall appears slightly edematous. The gallbladder is not distended. There is no right hydronephrosis. The pancreatic body is normal. The head and tail are obscured. IMPRESSION: 1. Cholelithiasis and mild gallbladder wall thickening. The findings raise the possibility of acute cholecystitis and a nuclear medicine hepatobiliary scan could be obtained. 2. No biliary ductal dilatation. Electronically signed by: Golden Hughes M.D. 03/04/2017 10:21 AM Dictated Date/Time: 03/04/2017 10:18 AM
== END | disposition home or self-care (01) ==
LOC: C.ULTRBC 09:09
PROVIDERS: ATTEND Internal Medicine
DX: R10.13 Epigastric pain (principal); K80.20 Calculus of gallbladder without cholecystitis without obstruction; R93.3 Abnormal findings on diagnostic imaging of other parts of digestive tract

== ENCOUNTER 2017-03-06 21:48 | Inpatient (IN) | payer BC ==
[~2017-03-06] VITALS: Ht 157.5 cm; Wt 79.8 kg
[~2017-03-06 21:48] MED LIST changes: -ZNTT/150 PO
[2017-03-06] MEDS ORDERED: MoRPHine SULFATE 4 MG/ML 1 ML CARP\\VIAL IV STA ×2 (21:58→23:14)
[2017-03-06] MEDS ORDERED: ONDANSETRON INJ 2 MG/ML 2 ML VIAL IV STA (21:58)
[2017-03-06] MEDS ORDERED: ZNTT/150 PO (22:20)
[2017-03-06 22:28] LABS: BASO % 0.5 %; BASO ABS # 0.05 K/uL (0-0.2); COMPLETE YES; EOS % 3.9 %; HEMATOCRIT 36.1 % (37-47); IG% 0.3 %; LYMPH % 30.1 %; LYMPH ABS # 3.13 K/uL (1.2-3.4); MEAN PLATELET VOLUME 9.7 fL (7.4-10.4); MONO % 8.6 %; NEUT % 56.6 %; PLATELET COUNT 230 K/uL (130-400); RED BLOOD COUNT 3.72 M/uL (4.2-5.4); WHITE BLOOD COUNT 10.41 K/uL (4.8-10.8)
[2017-03-06 22:34] LABS: URINE APPEARANCE CLEAR (CLEAR); URINE BILIRUBIN NEG (NEG); URINE COLOR YELLOW; URINE NITRITE NEG (NEG); URINE SPECIFIC GRAVITY 1.012 (1.000-1.030); UROBILINOGEN NEG (NEG); ZZUR CULT IF INDIC CLEAN CATCH NO
[2017-03-06 22:36] LABS: MANUAL MICROSCOPIC REQUIRED? NO; REVIEW REQ? NO
[2017-03-06 22:45] LABS: ALT/SGPT 35 U/L (12-78); BLOOD UREA NITROGEN 13 mg/dl (7-18); CARBON DIOXIDE 28 mmol/L (21-32); CHLORIDE 106 mmol/L (98-107); CREATININE 0.71 mg/dl (0.60-1.20); GLUCOSE 80 mg/dl (70-99); POTASSIUM 3.8 mmol/L (3.5-5.1); SODIUM 138 mmol/L (136-145)
[2017-03-06 22:48] LABS: ALKALINE PHOSPHATASE 78 U/L (45-117); AST/SGOT 17 U/L (15-37)
[2017-03-06] MEDS ORDERED: ALUMINUM/MAGNESIUM SUSP 30 ML UDC ONE (22:49)
[2017-03-06] MEDS ORDERED: LIDOCAINE HCL 2% VISC SOLN 20 ML UDC ONE (22:50)
[2017-03-06] MEDS ORDERED: ALUMINUM/MAGNESIUM SUSP 30 ML UDC PO STA (22:50)
[2017-03-06] MEDS ORDERED: LIDOCAINE HCL 2% VISC SOLN 20 ML UDC PO STA (22:50)
[2017-03-06 22:54] LABS: PREG INTERNAL NEGATIVE QC NEG CLEAR BACKGROUND; PREG INTERNAL POSITIVE QC POS CONTROL LINE
[2017-03-06 23:24] VITALS: O2SAT 98
--- NOTE | 2017-03-06 23:38 | EMERGENCY ROOM VISIT NOTE ---
History First contact with patient: 21:54 Chief Complaint: ABDOMINAL PAIN Stated Complaint: GALLBLADDER- STONES/SLUDGE FOUND ON ULTR, PAIN History of Present Illness The patient is a 32 year old female who presents to the Emergency Room with complaints of right upper quadrant pain for the past day described as aching, ranging in severity 8 out of 10. Nothing makes it better or worse. It occasionally radiates to her back. Patient had intermittent symptoms for a while. She had an ultrasound 2 days ago that showed concerns for possible acute cholecystitis. She is advised to go the ER symptoms returned. Patient had a hoagie sandwich and the pain came back. Patient denies chest pain, dyspnea, fever, chills, vomiting, diarrhea, urinary symptoms. Review of Systems See HPI for pertinent positives & negatives. A total of 10 systems reviewed and were otherwise negative. Past Medical/Surgical History Medical Problems: (1) Abdominal Pain, Epigastric (2) Abdominal Pain, Unspecified Site (3) Dehydration (4) Diabetes mellitus, new onset (5) Disorder Of Thyroid Nos (6) Hypothyroidism Nos (7) Infectious Mononucleosis (8) Intrauterine (9) Ovarian Cyst Nec/Nos (10) Salmonella Enteritis (11) Sinusitis (12) Syncope, vasovagal (13) Urinary tract infection (14) Vomiting and diarrhea Surgical Problems: (1) H/O wisdom tooth extraction (2) History of tubal ligation Family History Diabetes mellitus FH: gallbladder disease FH: heart disease Kidney disease Kidney stones Social History Smoking Status: Never Smoker Alcohol Use: none Drug Use: none Housing Status: lives with family Occupation Status: employed Current/Historical Medications Scheduled Levothyroxine Sodium (Synthroid), 100 MCG PO QAM Ranitidine (Zantac), 150 MG PO BID Sertraline Hcl (Zoloft), 100 MG PO HS Allergies Coded Allergies: No Known Allergies (Verified , 03/06/17) Physical Exam Vital Signs Date Time Temp Pulse Resp B/P (MAP) Pulse Ox O2 Delivery O2 Flow Rate FiO2 03/06/17 23:24 78 17 120/65 98 Room Air 03/06/17 22:25 97 Room Air 03/06/17 22:10 74 03/06/17 21:52 36.3 75 18 126/83 98 Room Air Physical Exam VITALS: Vitals are noted on the nurse's note and reviewed by myself. Vital signs stable. GENERAL:Pleasant female, who appears in mild pain, nondiaphoretic, well- developed well-nourished. SKIN: The skin was without rashes, erythema, edema, or bruising. There is no tenting of the skin. Capillary reflex less than 2 seconds. HEAD: Normocephalic atraumatic. EARS: External auditory canals clear EYES: Pupils equal round and reactive to light and accommodation. Conjunctivae without injection, sclerae without icterus. Extraocular movements intact. NOSE: Patent, turbinates without inflammation or discharge. MOUTH: Mucous membranes moist. Pharynx without erythema or exudate. Uvula midline. Airway patent. Tongue does not deviate. NECK: Supple without nuchal rigidity. No lymphadenopathy. No thyromegaly. Cervical spine is nontender. No JVD. HEART: Regular rate and rhythm without murmurs gallops or rubs. LUNGS: Clear to auscultation bilaterally without wheezes, rales or rhonchi. No dullness to percussion. No retractions or accessory muscle use. ABDOMEN: Positive bowel sounds x 4. Normal tympanic percussion. Soft, tender to palpation right upper quadrant, no CVA tenderness, without masses or organomegaly. Matthews sign positive. No guarding or rebound tenderness. MUSCULOSKELETAL: No muscle atrophy, erythema, or edema noted. NEURO: Patient was alert and oriented to person place and time. Normal sensation to light and sharp touch. No focal neurological deficits. Medical Decision & Procedures Laboratory Results 03/06/17 22:11 Red Blood Count 3.72, Mean Corpuscular Volume 97.0, Mean Corpuscular Hemoglobin 32.0, Mean Corpuscular Hemoglobin Concent 33.0, Mean Platelet Volume 9.7, Neutrophils (%) (Auto) 56.6, Lymphocytes (%) (Auto) 30.1, Monocytes (%) (Auto) 8.6, Eosinophils (%) (Auto) 3.9, Basophils (%) (Auto) 0.5, Neutrophils # (Auto) 5.89, Lymphocytes # (Auto) 3.13, Monocytes # (Auto) 0.90, Eosinophils # (Auto) 0.41, Basophils # (Auto) 0.05 03/06/17 22:11 Test 03/06/17 22:11 03/06/17 22:12 White Blood Count 10.41 K/uL (4.8-10.8) Red Blood Count 3.72 M/uL (4.2-5.4) Hemoglobin 11.9 g/dL (12.0-16.0) Hematocrit 36.1 % (37-47) Mean Corpuscular Volume 97.0 fL (80-100) Mean Corpuscular Hemoglobin 32.0 pg (25-34) Mean Corpuscular Hemoglobin Concent 33.0 g/dl (32-36) Platelet Count 230 K/uL (130-400) Mean Platelet Volume 9.7 fL (7.4-10.4) Neutrophils (%) (Auto) 56.6 % Lymphocytes (%) (Auto) 30.1 % Monocytes (%) (Auto) 8.6 % Eosinophils (%) (Auto) 3.9 % Basophils (%) (Auto) 0.5 % Neutrophils # (Auto) 5.89 K/uL (1.4-6.5) Lymphocytes # (Auto) 3.13 K/uL (1.2-3.4) Monocytes # (Auto) 0.90 K/uL (0.11-0.59) Eosinophils # (Auto) 0.41 K/uL (0-0.5) Basophils # (Auto) 0.05 K/uL (0-0.2) RDW Standard Deviation 46.2 fL (36.4-46.3) RDW Coefficient of Variation 13.1 % (11.5-14.5) Immature Granulocyte % (Auto) 0.3 % Immature Granulocyte # (Auto) 0.03 K/uL (0.00-0.02) Anion Gap 5.0 mmol/L (3-11) Est Creatinine Clear Calc Drug Dose 112.3 ml/min Estimated GFR () 131.5 Estimated GFR (Non- 113.5 BUN/Creatinine Ratio 18.0 (10-20) Calcium Level 9.0 mg/dl (8.5-10.1) Total Bilirubin 0.2 mg/dl (0.2-1) Direct Bilirubin < 0.1 mg/dl (0-0.2) Aspartate Amino Transf (AST/SGOT) 17 U/L (15-37) Alanine Aminotransferase (ALT/SGPT) 35 U/L (12-78) Alkaline Phosphatase 78 U/L (45-117) Total Protein 7.8 gm/dl (6.4-8.2) Albumin 3.9 gm/dl (3.4-5.0) Lipase 123 U/L (73-393) Human Chorionic Gonadotropin, Qual NEG (NEG) Urine Color YELLOW Urine Appearance CLEAR (CLEAR) Urine pH 7.0 (4.5-7.5) Urine Specific [place] 1.012 (1.000-1.030) Urine Protein NEG (NEG) Urine Glucose (UA) NEG (NEG) Urine Ketones NEG (NEG) Urine Occult Blood NEG (NEG) Urine Nitrite NEG (NEG) Urine Bilirubin NEG (NEG) Urine Urobilinogen NEG (NEG) Urine Leukocyte Esterase TRACE (NEG) Urine WBC (Auto) 1-5 /hpf (0-5) Urine RBC (Auto) 0-4 /hpf (0-4) Urine Hyaline Casts (Auto) 0 /lpf (0-5) Urine Epithelial Cells (Auto) 10-20 /lpf (0-5) Urine Bacteria (Auto) NEG (NEG) Medications Administered Medications (Trade) Dose Ordered Sig/Giacomo Route Start Time Stop Time Status Last Admin Dose Admin Morphine Sulfate (MoRPHine SULFATE INJ) 4 mg NOW STAT IV 03/06/17 21:58 03/06/17 22:00 DC 03/06/17 22:21 4 MG Ondansetron HCl (Zofran Inj) 4 mg NOW STAT IV 03/06/17 21:58 03/06/17 22:00 DC 03/06/17 22:20 4 MG Lidocaine HCl (Viscous Lidocaine 2% Soln) 10 ml NOW STAT PO 03/06/17 22:50 03/06/17 22:52 DC 03/06/17 22:53 10 ML Al Hydroxide/Mg Hydroxide (Maalox Susp) 30 ml NOW STAT PO 03/06/17 22:50 03/06/17 22:52 DC 03/06/17 22:52 30 ML Morphine Sulfate (MoRPHine SULFATE INJ) 4 mg NOW STAT IV 03/06/17 23:14 03/06/17 23:15 DC 03/06/17 23:21 4 MG ED Course Prior records/ancillary studies reviewed. Triage Nursing notes reviewed. Additional history obtained from friend. The patient's history was concerning for abdominal pain. Differential diagnosis: Etiologies such as appendicitis, diverticulitis, PUD, biliary pathology, UTI, pancreatitis, obstruction, mesenteric ischemia, aortic pathology, infections, inflammatory bowel disease, renal colic, as well as others were entertained. Physical examination findings: As above. ER treatment provided: Morphine, Zofran On reassessment the patient felt better. Diagnostics interpreted by me: The labs revealed no leukocytosis. Mild anemia. Negative hCG. Normal LFTs Imaging studies: ABDOMINAL ULTRASOUND, RIGHT UPPER QUADRANT HISTORY: Epigastric pain. COMPARISON: None. FINDINGS: Liver morphology is normal. No hepatic lesions are identified. There is no biliary ductal dilatation. Sludge and gallstones are noted within the gallbladder. Mild gallbladder wall thickening is noted. The wall measures 6 mm in thickness. The wall appears slightly edematous. The gallbladder is not distended. There is no right hydronephrosis. The pancreatic body is normal. The head and tail are obscured. IMPRESSION: 1. Cholelithiasis and mild gallbladder wall thickening. The findings raise the possibility of acute cholecystitis and a nuclear medicine hepatobiliary scan could be obtained. 2. No biliary ductal dilatation. Electronically signed by: Golden Hughes M.D. Consultation: A consultation was placed with the Surgeon,Dr Lyon. The case was discussed and diagnostics were reviewed. He recommends medical admission with scheduled HIDA scan and he will be consulted in the morning. Medicine was counseled, Dr. Black, and he will evaluate the patient possible admission. Please see his dictation for further information regarding his treatment plan. Exam and history seem consistent with biliary colic with concerns for acute cholecystitis. Patient will be evaluated by medicine and surgery was consulted. Patient is still having ongoing pain. She not feel comfortable going home. She is given a couple rounds of pain meds and a GI cocktail with improvement of symptoms. By the evaluation outlined above emergent etiologies such as appendicitis, diverticulitis, PUD, UTI, pancreatitis, obstruction, mesenteric ischemia, aortic pathology, infections, inflammatory bowel disease, renal colic, as well as others were deemed relatively unlikely. The pt informed about the findings as listed above. All questions were answered and pleased with the treatment. Case reviewed with my attending. Medical Decision As above Impression Primary Impression: Biliary colic Additional Impressions: Anemia Intractable right upper quadrant abdominal pain Departure Information Dispostion Being Evaluated By Hospitalist Condition GOOD Referrals RV. Felix MD (PCP) Patient Instructions My [facility] Problem Qualifiers
[2017-03-06] MEDS ORDERED: HYDROmorphone INJ 0.5 MG/0.5 ML SYR IV PRN (23:45)
[2017-03-06] MEDS ORDERED: ALUMINUM/MAGNESIUM/SIMETH (MAALOX MAX) 30 ML UDC PO PRN (23:45)
[2017-03-06] MEDS ORDERED: ACETAMINOPHEN 325 MG TAB PO PRN (23:45)
[2017-03-06] MEDS ORDERED: ONDANSETRON INJ 2 MG/ML 2 ML VIAL IV PRN (23:45)
[2017-03-06] MEDS ORDERED: MAGNESIUM HYDROXIDE SUSP 30 ML UDC PO PRN (23:45)
[2017-03-06] MEDS ORDERED: ZOLPIDEM TARTRATE 5 MG TAB PO PRN (23:45)
--- NOTE | 2017-03-06 23:55 | History and Physical ---
History & Physical Date & Time of Service: Mar 06, 2017 at 23:46 Chief Complaint: Gallbladder- Stones/Sludge Found On Ultr, Pain Primary Care Physician: RV. Felix MD History of Present Illness Source: patient 32 y/o F Hx depression, hypothyroidism, GERD. Has been having intermittent RUQ pain for 1-2 weeks, more persistent over the past 2 days. Pt had an outpt RUQ US 2 days prior revealing cholelithiasis and mild gallbladder wall thickening. She consumed a hoagie this evening and developed severe abdominal pain shortly after ingestion. She has not had fevers, rigors, vomiting or diarrhea. 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 Smoking Status: Never Smoker Drug Use: none Occupational Status: employed Immunizations History of Influenza Vaccine: Yes Influenza Vaccine Date: Jan 22, 2011 History of Tetanus Vaccine?: Unknown History of Pneumococcal: Unknown History of Hepatitis B Vaccine: Unknown Multi-Drug Resistant Organisms History of MDRO: No Allergies Coded Allergies: No Known Allergies (Verified , 03/06/17) Home Medications Scheduled Levothyroxine Sodium (Synthroid), 100 MCG PO QAM Ranitidine (Zantac), 150 MG PO BID Sertraline Hcl (Zoloft), 100 MG PO HS Review of Systems Constitutional: No fever, No chills, No sweats Eyes: No worsening of vision ENT: No hearing loss, No nasal symptoms Respiratory: No cough, No wheezing Cardiovascular: No chest pain Abdomen: + pain, + nausea, No vomiting Musculoskeletal: No joint pain Genitourinary - Female: No dysuria Neurologic: No memory loss, No paralysis, No weakness Psychiatric: No depression symptoms Endocrine: No fatigue Hematologic / Lymphatic: No abnormal bleeding/bruising Integumentary: No rash Allergic / Immunologic: No environmental allergies Physical Exam Vital Signs Date Time Temp Pulse Resp B/P (MAP) Pulse Ox O2 Delivery O2 Flow Rate FiO2 03/06/17 23:24 78 17 120/65 98 Room Air 03/06/17 22:25 97 Room Air 03/06/17 22:10 74 03/06/17 21:52 36.3 75 18 126/83 98 Room Air General Appearance: WD/WN, no apparent distress Head: normocephalic Eyes: normal inspection, EOMI, + pertinent finding (shadi-orbital hyperpigmentation present) ENT: normal ENT inspection, pharynx normal Neck: supple, no JVD Respiratory/Chest: chest non-tender, lungs clear, normal breath sounds Cardiovascular: regular rate, rhythm, no edema, no gallop, no JVD, no murmur, normal peripheral pulses Abdomen/GI: normal bowel sounds, soft, + pertinent finding (RUQ displays moderate tenderness to plapation without guarding or rebound) Back: normal inspection, no CVA tenderness Extremities/Musculoskelatal: normal inspection, no calf tenderness, normal capillary refill, no pedal edema, normal range of motion Neurologic/Psych: gas maker II-XII nml as tested, no motor/sensory deficits, alert, normal mood/affect, normal reflexes, oriented x 3 Skin: normal color, warm/dry Diagnostics Laboratory Results Results Past 24 Hours Test 03/06/17 22:11 03/06/17 22:12 Range/Units White Blood Count 10.41 4.8-10.8 K/uL Red Blood Count 3.72 4.2-5.4 M/uL Hemoglobin 11.9 12.0-16.0 g/dL Hematocrit 36.1 37-47 % Mean Corpuscular Volume 97.0 80-100 fL Mean Corpuscular Hemoglobin 32.0 25-34 pg Mean Corpuscular Hemoglobin Concent 33.0 32-36 g/dl Platelet Count 230 130-400 K/uL Mean Platelet Volume 9.7 7.4-10.4 fL Neutrophils (%) (Auto) 56.6 % Lymphocytes (%) (Auto) 30.1 % Monocytes (%) (Auto) 8.6 % Eosinophils (%) (Auto) 3.9 % Basophils (%) (Auto) 0.5 % Neutrophils # (Auto) 5.89 1.4-6.5 K/uL Lymphocytes # (Auto) 3.13 1.2-3.4 K/uL Monocytes # (Auto) 0.90 0.11-0.59 K/uL Eosinophils # (Auto) 0.41 0-0.5 K/uL Basophils # (Auto) 0.05 0-0.2 K/uL RDW Standard Deviation 46.2 36.4-46.3 fL RDW Coefficient of Variation 13.1 11.5-14.5 % Immature Granulocyte % (Auto) 0.3 % Immature Granulocyte # (Auto) 0.03 0.00-0.02 K/uL Sodium Level 138 136-145 mmol/L Potassium Level 3.8 3.5-5.1 mmol/L Chloride Level 106 98-107 mmol/L Carbon Dioxide Level 28 21-32 mmol/L Anion Gap 5.0 3-11 mmol/L Blood Urea Nitrogen 13 7-18 mg/dl Creatinine 0.71 0.60-1.20 mg/dl Est Creatinine Clear Calc Drug Dose 112.3 ml/min Estimated GFR () 131.5 Estimated GFR (Non- 113.5 BUN/Creatinine Ratio 18.0 10-20 Random Glucose 80 70-99 mg/dl Calcium Level 9.0 8.5-10.1 mg/dl Total Bilirubin 0.2 0.2-1 mg/dl Direct Bilirubin < 0.1 0-0.2 mg/dl Aspartate Amino Transf (AST/SGOT) 17 15-37 U/L Alanine Aminotransferase (ALT/SGPT) 35 12-78 U/L Alkaline Phosphatase 78 45-117 U/L Total Protein 7.8 6.4-8.2 gm/dl Albumin 3.9 3.4-5.0 gm/dl Lipase 123 73-393 U/L Human Chorionic Gonadotropin, Qual NEG NEG Urine Color YELLOW Urine Appearance CLEAR CLEAR Urine pH 7.0 4.5-7.5 Urine Specific [place] 1.012 1.000-1.030 Urine Protein NEG NEG Urine Glucose (UA) NEG NEG Urine Ketones NEG NEG Urine Occult Blood NEG NEG Urine Nitrite NEG NEG Urine Bilirubin NEG NEG Urine Urobilinogen NEG NEG Urine Leukocyte Esterase TRACE NEG Urine WBC (Auto) 1-5 0-5 /hpf Urine RBC (Auto) 0-4 0-4 /hpf Urine Hyaline Casts (Auto) 0 0-5 /lpf Urine Epithelial Cells (Auto) 10-20 0-5 /lpf Urine Bacteria (Auto) NEG NEG Diagnostic Radiology US abdominal: Cholelithiasis and mild gallbladder wall thickening. The findings raise the possibility of acute cholecystitis and a nuclear medicine hepatobiliary scan could be obtained. and thickening which may be consistent with cholecystitis. Impression Assessment and Plan 32 y/o F Hx depression, hypothyroidism, GERD. Has been having intermittent RUQ pain for 1-2 weeks, more persistent over the past 2 days. Pt had an outpt RUQ US 2 days prior revealing cholelithiasis and mild gallbladder wall thickening. She consumed a hoagie this evening and developed severe abdominal pain shortly after ingestion. She has not had fevers, rigors, vomiting or diarrhea. 1) RUQ pain - suspected cholecystitis - surgery was contacted and have requested that this pt be admitted to the medical service and scheduled for a HIDA scan. Pt will be kept NPO, pain control and IVF provided in the interim. 2) Hypothyroidism - cont Synthroid 3) GERD - cont Zantac 4) Depression - cont Sertraline Full code - SCDs Total time for this admit including review of labs, meds, imaging, records - discussion with pt and ER attending - 40 min Level of Care Med/Surg Resuscitation Status FULL RESUSCITATION VTE Prophylaxis VTE Risk Assessment Done? Y/N: Yes Risk Level: Low Given or contraindicated: SCD's
[2017-03-07] MEDS ORDERED: IV FLUIDS COMPLETED PRN ×2 (00:15→01:45)
[2017-03-07] MEDS ORDERED: POLYETHYLENE (MIRALAX) 17 GM PACK PO PRN (00:15)
[2017-03-07 00:35] VITALS: BP 117/74; PULSE 81; TEMP 36.6; O2SAT 95; Ht 157.5 cm; Wt 79.8 kg
[2017-03-07] MEDS: D5NSS + 20MEQ KCL 1,000 ML IV SCH ×2 (01:13→07:39)
[2017-03-07] MEDS ORDERED: LEVOTHYROXINE 100 MCG TAB PO SCH (06:00)
[2017-03-07 06:51] VITALS: BP 100/60; PULSE 69; TEMP 36.4; O2SAT 94
--- NOTE | 2017-03-07 06:54 | Family Medicine Progress Note ---
Progress Note Date of Service Mar 07, 2017. Assessment and Plan Ms. Quezada is a 32 year old female with a background history of depression, hypothyroidism, GERD with complaints of intermittent RUQ pain for 1-2 weeks which worsened over the last 2 days. RUQ pain - suspected cholecystitis - surgery aware - HIDA scan pending - NPO. - pain management with 0.5mg dilaudid q4h prn - IVF at 150mls/hr Hypothyroidism - continue Synthroid GERD - continue Zantac Depression: - continue Sertraline Resident Tracking Resident Involvement: Resident Care Provided Care Provided: Adult Hospital Medicine
[2017-03-07] MEDS ORDERED: RANITIDINE HCL 150 MG TAB PO SCH (09:00)
--- NOTE | 2017-03-07 10:00 | Surgery Consultation ---
Consultation Date of Consultation: Mar 07, 2017. Attending Physician: Zachariah Nunez D.O. Reason for Consultation: Cholelithiasis, abdominal pain History of Present Illness I've been asked by Dr. Nunez to see this 32-year-old female who presented to the emergency room with a complaint of right upper quadrant abdominal pain. The patient states that the pain ultimately began about 2-1/2 weeks ago. It is been present to some degree since then but she has episodes where the intensity increases. The discomfort is localized to the right upper quadrant. It radiates around to her back on occasion. There is some discomfort in the epigastric region as well but that is not as severe. There is no left upper quadrant pain or lower abdominal pain. This was associated with nausea no vomiting. She denies fever. She's not had a change in her bowel habits. There is no melena or hematochezia. She had an ultrasound of the right upper quadrant showing some mild gallbladder wall thickening and cholelithiasis but there was no pericholecystic fluid or ductal dilatation. She has a family history of gallbladder disease. Past Medical/Surgical History Medical Problems: (1) Anemia Status: Acute (2) Biliary colic Status: Acute (3) Disorder Of Thyroid Nos Status: Chronic (4) Hypothyroidism Nos Status: Chronic (5) Intractable right upper quadrant abdominal pain Status: Acute (6) Nausea and vomiting Status: Acute PSH: Tubal ligation Family History Diabetes mellitus FH: gallbladder disease FH: heart disease Kidney disease Kidney stones Social History Smoking Status: Never Smoker Smokeless Tobacco Use: No Alcohol Use: none Drug Use: none Housing Status: lives with family Occupation Status: employed Allergies Coded Allergies: No Known Allergies (Verified , 03/06/17) Home Medications Scheduled Levothyroxine Sodium (Synthroid), 100 MCG PO QAM Ranitidine (Zantac), 150 MG PO BID Sertraline Hcl (Zoloft), 100 MG PO HS Current Inpatient Medications Current Inpatient Medications Medications (Trade) Dose Ordered Sig/Giacomo Route Start Time Stop Time Status Last Admin Dose Admin Acetaminophen (Tylenol Tab) 650 mg Q4H PRN PO 03/06/17 23:45 04/05/17 23:44 Al Hydrox/Mg Hydrox/Simethicone (Maalox Max Susp) 15 ml Q4H PRN PO 03/06/17 23:45 04/05/17 23:44 Magnesium Hydroxide (Milk Of Magnesia Susp) 30 ml Q6H PRN PO 03/06/17 23:45 04/05/17 23:44 Polyethylene (Miralax Powder Packet) 17 gm DAILY PRN PO 03/07/17 00:15 04/06/17 00:14 Zolpidem Tartrate (Ambien Tab) 5 mg HSZ PRN PO 03/06/17 23:45 04/05/17 23:44 Ondansetron HCl (Zofran Inj) 4 mg Q6H PRN IV 03/06/17 23:45 04/05/17 23:44 Potassium Chloride/Dextrose/ Sod Cl 1,000 ml @ 150 mls/hr Q6H40M IV 03/07/17 01:00 03/07/17 14:19 03/07/17 07:39 150 MLS/HR Hydromorphone HCl (Dilaudid Inj) 0.5 mg Q4H PRN IV 03/06/17 23:45 03/20/17 23:44 Miscellaneous (Iv Fluids Completed) 1 ea PRN PRN N/A 03/07/17 00:15 03/07/18 00:14 Levothyroxine Sodium (Synthroid Tab) 100 mcg DAILYBB PO 03/07/17 06:00 04/06/17 05:59 03/07/17 06:18 100 MCG Ranitidine HCl (zANTac TAB) 150 mg BID PO 03/07/17 09:00 04/06/17 08:59 03/07/17 08:01 150 MG Sertraline HCl (Zoloft Tab) 100 mg HS PO 03/07/17 21:00 04/06/17 20:59 Miscellaneous (Iv Fluids Completed) 1 ea PRN PRN N/A 03/07/17 01:45 03/07/18 01:44 Review of Systems Constitutional: No fever, No chills Respiratory: No cough, No sputum Abdomen: + problem reported (as per hPI) Genitourinary - Female: No dysuria, No urinary frequency Integumentary: No rash Physical Exam Date Time Temp Pulse Resp B/P (MAP) Pulse Ox O2 Delivery O2 Flow Rate FiO2 03/07/17 07:50 Room Air 03/07/17 06:51 36.4 69 18 100/60 (73) 94 Room Air 03/07/17 00:35 36.6 81 18 117/74 (88) 95 Room Air 03/07/17 00:35 Room Air 03/07/17 00:35 Room Air 03/06/17 23:24 78 17 120/65 98 Room Air 03/06/17 22:25 97 Room Air 03/06/17 22:10 74 03/06/17 21:52 36.3 75 18 126/83 98 Room Air General Appearance: no apparent distress Head: normocephalic Neck: supple, no adenopathy Respiratory/Chest: chest non-tender, lungs clear Cardiovascular: regular rate, rhythm Abdomen/GI: normal bowel sounds, non tender, soft Back: normal inspection, no CVA tenderness Extremities/Musculoskelatal: normal inspection, no pedal edema Skin: normal color Laboratory Results Last 24 Hours Test 03/06/17 22:11 03/06/17 22:12 White Blood Count 10.41 K/uL Red Blood Count 3.72 M/uL Hemoglobin 11.9 g/dL Hematocrit 36.1 % Mean Corpuscular Volume 97.0 fL Mean Corpuscular Hemoglobin 32.0 pg Mean Corpuscular Hemoglobin Concent 33.0 g/dl Platelet Count 230 K/uL Mean Platelet Volume 9.7 fL Neutrophils (%) (Auto) 56.6 % Lymphocytes (%) (Auto) 30.1 % Monocytes (%) (Auto) 8.6 % Eosinophils (%) (Auto) 3.9 % Basophils (%) (Auto) 0.5 % Neutrophils # (Auto) 5.89 K/uL Lymphocytes # (Auto) 3.13 K/uL Monocytes # (Auto) 0.90 K/uL Eosinophils # (Auto) 0.41 K/uL Basophils # (Auto) 0.05 K/uL RDW Standard Deviation 46.2 fL RDW Coefficient of Variation 13.1 % Immature Granulocyte % (Auto) 0.3 % Immature Granulocyte # (Auto) 0.03 K/uL Sodium Level 138 mmol/L Potassium Level 3.8 mmol/L Chloride Level 106 mmol/L Carbon Dioxide Level 28 mmol/L Anion Gap 5.0 mmol/L Blood Urea Nitrogen 13 mg/dl Creatinine 0.71 mg/dl Est Creatinine Clear Calc Drug Dose 112.3 ml/min Estimated GFR () 131.5 Estimated GFR (Non- 113.5 BUN/Creatinine Ratio 18.0 Random Glucose 80 mg/dl Calcium Level 9.0 mg/dl Total Bilirubin 0.2 mg/dl Direct Bilirubin < 0.1 mg/dl Aspartate Amino Transf (AST/SGOT) 17 U/L Alanine Aminotransferase (ALT/SGPT) 35 U/L Alkaline Phosphatase 78 U/L Total Protein 7.8 gm/dl Albumin 3.9 gm/dl Lipase 123 U/L Human Chorionic Gonadotropin, Qual NEG Urine Color YELLOW Urine Appearance CLEAR Urine pH 7.0 Urine Specific [place] 1.012 Urine Protein NEG Urine Glucose (UA) NEG Urine Ketones NEG Urine Occult Blood NEG Urine Nitrite NEG Urine Bilirubin NEG Urine Urobilinogen NEG Urine Leukocyte Esterase TRACE Urine WBC (Auto) 1-5 /hpf Urine RBC (Auto) 0-4 /hpf Urine Hyaline Casts (Auto) 0 /lpf Urine Epithelial Cells (Auto) 10-20 /lpf Urine Bacteria (Auto) NEG ABDOMINAL ULTRASOUND, RIGHT UPPER QUADRANT HISTORY: Epigastric pain. COMPARISON: None. FINDINGS: Liver morphology is normal. No hepatic lesions are identified. There is no biliary ductal dilatation. Sludge and gallstones are noted within the gallbladder. Mild gallbladder wall thickening is noted. The wall measures 6 mm in thickness. The wall appears slightly edematous. The gallbladder is not distended. There is no right hydronephrosis. The pancreatic body is normal. The head and tail are obscured. IMPRESSION: 1. Cholelithiasis and mild gallbladder wall thickening. The findings raise the possibility of acute cholecystitis and a nuclear medicine hepatobiliary scan could be obtained. 2. No biliary ductal dilatation. Assessment & Plan This patient has biliary colic. There was suggestion of thickening of the gallbladder wall but at the present time she is completely pain-free. She has absolutely no tenderness on exam. She has been afebrile. She has no nausea. We discussed the fact that she will need a cholecystectomy at some point. We discussed timing of the operation. I offered today versus Saturday. She has chosen Saturday. We will bring her back for the surgery on that day. If the symptoms recur she can return for another evaluation. I've explained to her the laparoscopic cholecystectomy and the possible need to convert to an open procedure. I explained some of the complications associated with those procedures and answered her questions she has signed a consent form.
--- NOTE | 2017-03-07 10:20 | Discharge Instructions ---
Discharge Instructions Date of Service Mar 07, 2017. Admission Reason for Admission: Cholecystitis Discharge Discharge Diagnosis / Problem: Gallstones Discharge Goals Goal(s): Decrease discomfort, Improve function Activity Recommendations Activity Limitations: resume your previous activity Instructions / Follow-Up Instructions / Follow-Up You came to [facility] due to right sided abdominal pain that had worsened over the last 2 days. Your ultrasound showed that you have gallstones and some thickening of your gallbladder wall. You were seen by a general surgeon named Dr. Caro who will be taking you to surgery on Saturday to remove your gallbladder. Over the next few days, please try and minimize fatty foods in your diet as this can worsen your abdominal pain. If you experience any nausea, vomiting, fever, chills, or your pain gets worse, please come back to the hospital. You can continue all your other medications as prescribed. . Current Hospital Diet Patient's current hospital diet: Discharge Diet Recommended Diet: Low Fat Diet Pending Studies Studies pending at discharge: no Medical Emergencies . Who to Call and When: Medical Emergencies: If at any time you feel your situation is an emergency, please call 911 immediately. . Non-Emergent Contact Non-Emergency issues call your: Primary Care Provider . . "Provider Documentation" section prepared by Philippe Hayden. . VTE Core Measure Inpt VTE Proph given/why not?: SCD's
--- NOTE | 2017-03-07 10:35 | Discharge Summary ---
Discharge Summary Date of Service Mar 07, 2017. Discharge Summary Admission Date: Mar 06, 2017 at 23:46 Discharge Date: Mar 07, 2017 Discharge Disposition: Home Principal Diagnosis: Cholelithiasis Problems/Secondary Diagnoses: (1) Disorder Of Thyroid Nos Status: Chronic (2) Hypothyroidism Nos Status: Chronic Immunizations: Have You Had Influenza Vaccine: Yes Influenza Vaccine Date: Jan 22, 2011 History of Tetanus Vaccine?: Unknown History of Pneumococcal: Unknown History of Hepatitis B Vaccine: Unknown Consultations: General Surgery Medication Reconciliation Continued Medications: Levothyroxine Sodium (Synthroid) 100 Mcg Tab 100 MCG PO QAM Ranitidine (Zantac) 150 Mg Tab 150 MG PO BID, TAB Sertraline Hcl (Zoloft) 100 Mg Tab 100 MG PO HS Discharge Exam Ms. Quezada states that she has had a 1-2 week history of RUQ pain that worsened to a 10/10 over the last 2 days. She reports her pain has decreased down to a 3/ 10 and is improving. She denies nausea, vomiting, fever, chills, change in urine or stool, diarrhea, chest pain or shortness of breath. Review of Systems: Constitutional: No fever, No chills, No sweats Respiratory: No cough, No sputum, No wheezing Cardiovascular: No chest pain, No edema Abdomen: + pain, No nausea, No vomiting, No diarrhea, No constipation Genitourinary - Female: No hematuria Physical Exam: General Appearance: WD/WN, no apparent distress Respiratory/Chest: chest non-tender, lungs clear, normal breath sounds, no respiratory distress, no accessory muscle use Cardiovascular: regular rate, rhythm, no edema, no gallop, no JVD, no murmur , normal peripheral pulses Abdomen / GI: normal bowel sounds, non tender, soft, no organomegaly, no pulsatile mass, + pertinent finding (slight tenderness on eliciting Matthews's sign) Hospital Course Ms. Quezada came to [facility] because of a history of 2 weeks of abdominal pain that worsened over the last 2 days. Her ultrasound showed mild gallbladder wall thickening and cholelithiasis but no pericholecystic fluid or dilation of the ducts. She was seen by general surgery (Dr. Caro) who scheduled her for a laparoscopic cholecystectomy on Saturday. Dr. Caro explained the procedure as well as the complications and she consented. She was told to return to the hospital if she experienced any worsening of symptoms or developed a fever, chills, n/v, diarrhea. Total Time Spent: Less than 30 minutes This includes examination of the patient, discharge planning, medication reconciliation, and communication with other providers. Discharge Instructions Please refer to the electronic Patient Visit Report (Discharge Instructions) for additional information. Additional Copies To RV. Felix MD
[2017-03-07 10:57] VITALS: BP 100/60; PULSE 69; TEMP 36.4; O2SAT 94
[2017-03-07] MEDS ORDERED: SERTRALINE HCL 100 MG TAB PO SCH (21:00)
== END 2017-03-07 11:12 | disposition home or self-care (01) | DRG 446 ==
LOC: C.EDB 21:49 → C.MSW 23:46 → EDBEDREQ 23:50 → ENRESERV 03-07
PROVIDERS: ADMIT Internal Medicine; ATTEND Hospitalist
DX: K80.20 Calculus of gallbladder without cholecystitis without obstruction (principal); E11.9 Type 2 diabetes mellitus without complications; E03.9 Hypothyroidism, unspecified; K21.9 Gastro-esophageal reflux disease without esophagitis; F32.9 Major depressive disorder, single episode, unspecified; Z79.899 Other long term (current) drug therapy; Z83.3 Family history of diabetes mellitus

== ENCOUNTER 2017-03-11 11:57 | Day surgery (SDC) | payer BC ==
[~2017-03-11] VITALS: Ht 157.5 cm; Wt 79.0 kg
[~2017-03-11 11:57] MED LIST changes: +ATROPINE SULFATE 0.1 MG/ML 5ML SYR IV PRN; +CEFAZOLIN 2000MG IV PUSH 10 ML IV SCH; +EpHEDrine SULFATE INJ 50 MG/ML AMP IV PRN; +FENTANYL CITRATE INJ 50 MCG/1 ML 2 ML VIAL IV PRN; +HYDROmorphone INJ 1 MG/ML SYR IV PRN; +LACTATED RINGER'S 1000ML 1,000 ML IV SCH; +ONDANSETRON INJ 2 MG/ML 2 ML VIAL IV PRN; +ZNTT/150 PO
[2017-03-11] MEDS ORDERED: FENTANYL CITRATE INJ 50 MCG/1 ML 2 ML VIAL ONE ×3 (12:02→15:12)
[2017-03-11] MEDS ORDERED: MIDAZOLAM HCL 1 MG/ML 2ML VIAL ONE ×2 (12:02→13:39)
[2017-03-11 12:20] VITALS: BP 120/71; PULSE 69; TEMP 36.8; O2SAT 96; Ht 157.5 cm; Wt 79.0 kg
[2017-03-11] MEDS ORDERED: CEFAZOLIN SOD 1 GM VIAL ONE (12:35)
[2017-03-11] MEDS ORDERED: HEPARIN SOD (PORCINE) 1000 UNIT/ML 10 ML VIAL ONE (12:35)
[2017-03-11] MEDS ORDERED: BUPIVACAINE 0.5 % 5 MG/1 ML MPF 30ML VIAL ONE (12:36)
[2017-03-11] MEDS ORDERED: DEXAMETHASONE SOD INJ 4 MG/ML VIAL ONE (14:19)
[2017-03-11] MEDS ORDERED: ONDANSETRON INJ 2 MG/ML 2 ML VIAL ONE (14:19)
[2017-03-11] MEDS ORDERED: ROCURONIUM BROMIDE 10 MG/ML 5 ML VIAL IV ONE (14:19)
[2017-03-11] MEDS ORDERED: PROPOFOL IV EMULSION 10 MG/ML 20 ML VIAL IV ONE (14:19)
[2017-03-11] MEDS ORDERED: LIDOCAINE HCL 2% 2 ML VIAL (20MG/ML) ONE (14:19)
[2017-03-11] MEDS ORDERED: SODIUM CHLORIDE 0.9% 1000ML 1,000 ML IV SCH ×2 (15:09)
--- NOTE | 2017-03-11 15:09 | [facility] Post Operative Brief Note ---
Immediate Operative Summary Operative Date Mar 11, 2017. Pre-Operative Diagnosis cholelithiasis, chronic cholecystitis Post-Operative Diagnosis cholelithiasis, chromic cholecystitis Procedure(s) Performed laparoscopic cholecystectomy Surgeon Dr. J Carlos Caro Band Presser Surgeon(s) Jennifer HOOKS Estimated Blood Loss 5ml Findings See dictation Specimens A: Gallbladder and contents Drains None Anesthesia General Complication(s) None Disposition Recovery Room / PACU
--- NOTE | 2017-03-11 15:12 | Discharge Instructions ---
Discharge Instructions Date of Service Mar 11, 2017. Admission Reason for Admission: Chronic Cholecystitis, Cholelithiasis Discharge Discharge Diagnosis / Problem: Same Discharge Goals Goal(s): Decrease discomfort Activity Recommendations Activity Limitations: per Instructions/Follow-up section Lifting Limitations: no more than 10 pounds (for 2 weeks) Shower/Bathe: tomorrow (shower only) . Instructions / Follow-Up Instructions / Follow-Up Post-Surgical ~ Discharge Instructions Activity Recommendations: - lifting limitation: (10 pounds for 2 weeks), - exercise/sex/sports limit: (nonstrenuous for 2 weeks), - driving or machine use limit: (none for 1 week), - Shower/bathe limit: (may shower beginning tomorrow) Diet: - Resume previous diet SPECIAL CARE INSTRUCTIONS: - May shower in 24 hours. Let water run over area and pat dry. - Leave steri strips on for one week. - Call the surgeon's office with any questions or concerns - - (ex. temperature higher than 101 degrees F, excessive bleeding or pain). MEDICATIONS: - Resume previous medications unless instructed otherwise by your surgeon. - Ibuprofen 600 mg every 6 hours with food - Percocet 1 every 4 hours, as needed for pain FOLLOW UP VISIT: - If not already scheduled, please call the office to schedule a two week follow-up appointment. Office number Current Hospital Diet Patient's current hospital diet: Discharge Diet Recommended Diet: Regular Diet Procedures Procedures Performed: laparoscopic cholecystectomy Pending Studies Studies pending at discharge: yes List of pending studies: Pathology Medical Emergencies . Who to Call and When: Medical Emergencies: If at any time you feel your situation is an emergency, please call 911 immediately. . Non-Emergent Contact Non-Emergency issues call your: Primary Care Provider, Surgeon Call Non-Emergent contact if: your pain is worsening, wound has increased redness, wound has increased pain . "Provider Documentation" section prepared by J Carlos Caro. . VTE Core Measure Inpt VTE Proph given/why not?: Treatment not indicated
[2017-03-11] MEDS ORDERED: ONDANSETRON INJ 2 MG/ML 2 ML VIAL IV PRN ×2 (15:15)
[2017-03-11] MEDS ORDERED: NURSING VERBAL MED ORDER ONE (15:15)
[2017-03-11] MEDS ORDERED: MoRPHine SULFATE 4 MG/ML 1 ML CARP\\VIAL IV PRN ×2 (15:15)
[2017-03-11] MEDS ORDERED: OXYCODONE/ACETAMINOPHEN 5-325 TAB PO PRN ×2 (15:15)
[2017-03-11] MEDS ORDERED: PROMETHAZINE HCL INJ 12.5 MG in SODIUM CHLORIDE 0.9% 50ML 50 ML IV ONE (15:30)
--- NOTE | 2017-03-11 15:54 | OPERATIVE REPORT ---
DATE OF OPERATION: 03/11/2017 PREOPERATIVE DIAGNOSES: Cholelithiasis, chronic cholecystitis. POSTOPERATIVE DIAGNOSES: Same. PROCEDURE: Laparoscopic cholecystectomy. SURGEON: Dr. Caro. FINDINGS: The gallbladder had multiple stones within it. There was 1 lodged in the infundibulum just above the neck. The cystic duct was not dilated. The gallbladder wall was mildly thickened. The liver was of normal size and contour. The visible bowel appeared normal. TECHNIQUE: The patient was given a general anesthetic and the area was prepped and draped in usual sterile fashion. Transverse incision was made below the umbilicus, carried down through the subcutaneous tissue to the fascia, which was grasped with 2 Jesús clamps and incised between. The peritoneum was identified, incised, and the introducer was placed bluntly. The abdomen was then insufflated to a pressure of 15 mmHg with carbon dioxide. The upper midline, midclavicular and anterior axillary introducers were placed under direct vision through small skin incisions. Traction was placed on the gallbladder. There were some adhesions over the lower body and infundibulum area that were taken down using blunt and cautery dissection where appropriate. That exposed the infundibulum and I was able to elevate that and opened the peritoneum on the lateral side peeling it down towards the common bile duct and then the infundibulum off the liver on the lateral side. I then worked over the infundibulum and peeled additional peritoneum and connective tissue away and then entered the triangle of Calot and dissected the infundibulum away from the liver on the medial side. There was a small vessel traversing the anterior surface of the cystic duct that was isolated, clamped proximally, distally and divided. That allowed me then to isolate and skeletonize the cystic duct on the medial side as well as posteriorly and identify with confidence the cystic duct gallbladder junction. The cystic duct lymph node was seen adherent to the gallbladder near the junction of the cystic duct and the gallbladder. I was able to dissect away the feeding lymphatics, clamped them and divided them, which allowed me access to the posterior aspect of the triangle of Calot where the cystic artery was identified. Three clips were placed on the proximal cystic duct, 1 near the gallbladder and it was divided. Further dissection and skeletonization of the cystic artery was performed. It was clamped twice proximally once near the gallbladder and divided. The gallbladder was then peeled off the liver bed using electrocautery. It was placed into an Endobag and brought out through the upper midline incision. Then, the introducer was replaced and the liver edge was elevated. The subdiaphragmatic and subhepatic spaces were irrigated and the irrigation removed. The gallbladder bed of the liver was inspected and there was no bleeding. The previously placed clips were inspected and they were intact. The gas was allowed to escape and the introducers were removed. The fascia of the umbilical and upper midline introducer sites was closed with interrupted 0 Vicryl and the skin of all the incisions was closed with 4-0 Monocryl in either an interrupted or running subcuticular fashion. The skin was anesthetized with 0.5% Marcaine. The skin was cleansed, dried, benzoin placed, Steri-Strips applied. The estimated blood loss was 5 mL. Sponge, needle and instrument counts were correct x2 prior to closure. The patient tolerated the surgical procedure without complication and was transferred to recovery. I attest to the content of the Intraoperative Record and any orders documented therein. Any exception s are noted below.
--- NOTE | 2017-03-11 16:04 | Anesthesiology Progress Note ---
Anesthesia Post Op Note Date & Time Mar 11, 2017 at 16:04 Vital Signs Pain Intensity: 8 Vital Signs Past 12 Hours Date Time Temp Pulse Resp B/P (MAP) Pulse Ox O2 Delivery O2 Flow Rate FiO2 03/11/17 15:56 120/71 03/11/17 15:53 76 15 03/11/17 15:53 75 15 91 03/11/17 15:51 116/73 03/11/17 15:48 77 22 03/11/17 15:48 76 22 92 03/11/17 15:46 118/71 03/11/17 15:45 121/69 03/11/17 15:43 75 16 98 03/11/17 15:43 75 16 03/11/17 15:41 120/72 03/11/17 15:38 70 13 03/11/17 15:38 71 13 99 03/11/17 15:36 118/71 03/11/17 15:36 36.4 85 20 120/71 93 Oxymask 03/11/17 15:33 71 18 99 03/11/17 15:33 71 18 03/11/17 15:32 69 15 100 03/11/17 15:32 69 15 03/11/17 15:31 115/74 03/11/17 15:27 67 15 03/11/17 15:27 66 15 100 03/11/17 15:26 114/72 03/11/17 15:22 61 16 03/11/17 15:22 61 16 100 03/11/17 15:21 115/72 03/11/17 15:17 62 8 100 03/11/17 15:17 62 8 03/11/17 15:16 114/74 03/11/17 15:14 65 15 100 03/11/17 15:14 66 15 03/11/17 15:11 119/72 03/11/17 15:09 73 14 03/11/17 15:09 72 14 100 03/11/17 15:06 116/75 03/11/17 15:04 69 13 100 03/11/17 15:04 68 13 03/11/17 15:01 115/71 03/11/17 15:00 118/71 03/11/17 14:59 36.3 71 16 118/71 100 Oxymask 10 03/11/17 14:59 72 12 03/11/17 14:59 72 12 100 03/11/17 12:20 36.8 69 18 120/71 (87) 96 Room Air Notes Mental Status: alert / awake / arousable, participated in evaluation Pt Amnestic to Procedure: Yes Nausea / Vomiting: adequately controlled Pain: adequately controlled Airway Patency, RR, SpO2: stable & adequate BP & HR: stable & adequate Hydration State: stable & adequate Anesthetic Complications: no major complications apparent
[2017-03-11 16:05] VITALS: BP 132/71; PULSE 70; TEMP 36.7; O2SAT 93
[2017-03-11 16:35] VITALS: BP 113/72; PULSE 75; O2SAT 94
[2017-03-11 17:05] VITALS: BP 120/71; PULSE 70; TEMP 36.6; O2SAT 95
[2017-03-11 17:35] VITALS: BP 114/77; PULSE 87; TEMP 36.6; O2SAT 98
== END 2017-03-11 17:47 | disposition home or self-care (01) ==
LOC: C.ACU 11:57
PROVIDERS: ATTEND Surgery
DX: K80.12 Calculus of gallbladder with acute and chronic cholecystitis without obstruction (principal); D64.9 Anemia, unspecified; E03.9 Hypothyroidism, unspecified; Z79.899 Other long term (current) drug therapy

== ENCOUNTER → 2017-04-10 | Outpatient (CLI) | payer BC ==
[~2017-04-10] MED LIST changes: -ATROPINE SULFATE 0.1 MG/ML 5ML SYR IV PRN; -CEFAZOLIN 2000MG IV PUSH 10 ML IV SCH; -EpHEDrine SULFATE INJ 50 MG/ML AMP IV PRN; -FENTANYL CITRATE INJ 50 MCG/1 ML 2 ML VIAL IV PRN; -HYDROmorphone INJ 1 MG/ML SYR IV PRN; -LACTATED RINGER'S 1000ML 1,000 ML IV SCH; -ONDANSETRON INJ 2 MG/ML 2 ML VIAL IV PRN; +RANI150T85 PO; -ZNTT/150 PO
[2017-04-10 13:05] LABS: BASO % 0.6 %; BASO ABS # 0.05 K/uL (0-0.2); EOS % 4.9 %; EOS ABS # 0.41 K/uL (0-0.5); HEMOGLOBIN 12.7 g/dL (12.0-16.0); IG# 0.02 K/uL (0.00-0.02); MEAN CELL VOLUME 97.5 fL (80-100); MEAN CORPUSCULAR HEMOGLOBIN 31.8 pg (25-34); MEAN CORPUSCULAR HGB CONC 32.6 g/dl (32-36); MONO ABS # 0.58 K/uL (0.11-0.59); NEUT % 51.3 %; NEUT ABS # 4.28 K/uL (1.4-6.5); PLATELET COUNT 230 K/uL (130-400); RED CELL DISTRIBUTION WIDTH CV 13.3 % (11.5-14.5); RED CELL DISTRIBUTION WIDTH SD 47.4 fL (36.4-46.3); WHITE BLOOD COUNT 8.34 K/uL (4.8-10.8)
== END | disposition home or self-care (01) ==
LOC: C.LABBC 12:07
PROVIDERS: ATTEND Internal Medicine Endocrinology, Diabetes & Metabolism
DX: Z86.39 Personal history of other endocrine, nutritional and metabolic disease (principal); R53.83 Other fatigue

== ENCOUNTER → 2017-08-23 | Outpatient (CLI) | payer BC | END | disposition home or self-care (01) | LOC: C.LABBC 12:11 | PROVIDERS: ATTEND Internal Medicine Endocrinology, Diabetes & Metabolism | DX: E03.9 Hypothyroidism, unspecified (principal) ==